=== PATIENT | female | born 1950 | race Caucasian/White ===

== ENCOUNTER 2019-11-05 13:52 | Outpatient (CLI) | payer MEDICARE, OTHER, SELFPAY ==
--- NOTE | 2019-11-05 14:01 | US_ITS ---
WS: [id number] Subcutaneous ultrasound of the left flank, 11/05/2019 Clinical Data: LIPOMA/MASS ON L CHEST WALL Comparison: None. Findings: There was a left flank density. Ultrasound was performed over this area and only normal subcutaneous tissue could be seen. There were no cysts or masses.
--- NOTE | 2019-11-05 14:01 | US_ITS ---
WS: [id number] Subcutaneous ultrasound of the left flank, 11/05/2019 Clinical Data: LIPOMA/MASS ON L CHEST WALL Comparison: None. Findings: There was a left flank density. Ultrasound was performed over this area and only normal subcutaneous tissue could be seen. There were no cysts or masses. US/US chest [id number] Impression: Negative subcutaneous ultrasound of the left flank.
== END 2019-11-05 13:53 | disposition home or self-care (01) ==
PROVIDERS: Family Provider Family Medicine; PCP Family Medicine; Visit Provider Family Medicine
DX: D17.79 Benign lipomatous neoplasm of other sites (principal)
CPT/HCPCS: 76604

== ENCOUNTER 2019-11-10 13:54 | Outpatient (CLI) | payer MEDICARE, OTHER, SELFPAY ==
--- NOTE | 2019-11-10 14:04 | MM_ITS ---
WS: [id number] BILATERAL SCREENING DIGITAL MAMMOGRAM WITH CAD HISTORY: SCREENING COMPARISON: 10/02/2017 and 02/10/2014 Bilateral CC and MLO views submitted. Computer aided detection analyzed. Breast composition: There are scattered areas of fibroglandular density. No suspicious masses, microc alcifications or architectural distortion. MM/[place] [id number] IMPRESSION: BI-RADS: 1-Negative FOLLOW UP: 1 Year Follow-up
== END 2019-11-10 13:55 | disposition home or self-care (01) ==
LOC: RADSHAW 14:00
PROVIDERS: Family Provider Family Medicine; PCP Nurse Practitioner Women's Health; Visit Provider Nurse Practitioner Women's Health
DX: Z12.31 Encounter for screening mammogram for malignant neoplasm of breast (principal)
CPT/HCPCS: 77067

== ENCOUNTER → 2019-11-19 14:00 | Outpatient (BNVA) | payer MEDICARE, OTHER, SELFPAY | PROVIDERS: Family Provider Family Medicine; PCP Nurse Practitioner Women's Health; Visit Provider Nurse Practitioner Women's Health | DX: Z01.419 Encounter for gynecological examination (general) (routine) without abnormal findings (principal); N64.52 Nipple discharge; F17.200 Nicotine dependence, unspecified, uncomplicated; Z86.718 Personal history of other venous thrombosis and embolism | CPT/HCPCS: 84146; 84439; 84443 ==

== ENCOUNTER 2020-05-10 14:00 | Outpatient (CLI) | payer MEDICARE, OTHER, SELFPAY ==
--- NOTE | 2020-05-10 14:07 | XR_ITS ---
WS: [id number] SCREENING DEXA SCAN [place] CLINICAL INFORMATION: POSTMENOPAUSAL ANNUAL EXAM COMPARISON: None. FINDINGS: Lumbar scoliosis convex left with endplate sclerosis. The L1-L4 bone mineral density measures 1.475 g/cm2. This corresponds to a T score score of 2.5 and Z score of 3.4. Left femoral neck bone mineral density measures 0.866. This corresponds to a T score of -1.1 and Z sc ore of -0.2. Left forearm bone mineral density measuring 0.95 with a T score of 0.8 and Z score of 2.6 XR/XR DEXA axial skeleton* [id number] IMPRESSION: Osteopenia left femoral neck. Patient's FRAX calculated 10 year probability for major osteoporotic fracture i s 16.2 % and osteoporotic hip fracture is 4.0%.
== END 2020-05-10 14:01 | disposition home or self-care (01) ==
LOC: RADWPI 14:04
PROVIDERS: Family Provider Family Medicine; PCP Family Medicine; Visit Provider Family Medicine
DX: Z78.0 Asymptomatic menopausal state (principal); M85.88 Other specified disorders of bone density and structure, other site
CPT/HCPCS: 77080

== ENCOUNTER 2021-03-14 13:01 | Outpatient (CLI) | payer MEDICARE, OTHER, SELFPAY ==
--- NOTE | 2021-03-14 13:17 | XRR_ITS ---
PROCEDURE INFORMATION: Exam: XR Chest Exam date and time: 03/14/2021 1:19 PM Age: 70 years old Clinical indication: Dyspnea and shortness of breath and wheezing; Additional info: Smoker/dyspnea TECHNIQUE: Imaging protocol: XR of the chest. Views: 2 views. COMPARISON: CR Chest 1 [place] [id number] 10/20/2018 12:12 AM FINDINGS: Lungs: Unremarkable. No consolidation. Pleural spaces: Unremarkable. No pleural effusion. No pneumothorax. Heart/Mediastinum: Unremarkable. No cardiomegaly. There is a hiatal hernia present stable since prior Bones/joints: Unremarkable. XR/XR chest 2V* [id number] IMPRESSION: 1. Stable hiatal hernia 2. Otherwise negative chest examination
== END 2021-03-14 13:02 | disposition home or self-care (01) ==
PROVIDERS: Family Provider Family Medicine; PCP Family Medicine; Visit Provider Family Medicine
DX: F17.200 Nicotine dependence, unspecified, uncomplicated (principal); R06.00 Dyspnea, unspecified; K44.9 Diaphragmatic hernia without obstruction or gangrene
CPT/HCPCS: 71046

== ENCOUNTER 2022-03-15 12:43 | Emergency (ER) | payer MEDICARE, OTHER, SELFPAY ==
[2022-03-15 12:53] VITALS: BP 154/74; PULSE 97; RESP 15; TEMP 37.1; O2SAT 97; BMI 37.2
--- NOTE | 2022-03-15 13:07 | XR_ITS ---
WS: [id number] XR chest 1V portable [id number] REASON FOR EXAM: chest pain FINDINGS: Moderate tortuosity of the thoracic aorta associated with thoracic scoliosis convex right. Large hiatal hernia. Cardiac silhouette appears more prominent than on the previous day however this is likely due to diff erence in systole/diastole. No acute pulmonary parenchymal or pleural abnormality is identified. XR/XR chest 1V portable [id number] IMPRESSION: No acute abnormality identified.
--- NOTE | 2022-03-15 13:07 | ECG_ITS ---
[facility] Test Date: 2022-03-15 Pat Name: Karolyn Mathews Department: Room: Gender: Female [employer] Location Manager: : 1950 Requested By: Mona Nolan Order Number: [id number] Amol MD: Irving Carballo M.D. Measurements Intervals [place] Rate: 72 P: 13 CT: 147 QRS: -7 QRSD: 90 T: 57 QT: 379 QTc: 417 Interpretive Statements SINUS RHYTHM Compared to ECG 03/15/2022 13:03:12 ST (T wave) deviation no longer present Electronically Signed On 03-15-2022 23:58:34 CDT by Irving Carballo M.D. [email or web address] medicineMGB Bioph[employer]/store/OM/[id number]/[id number]
[2022-03-15 14:58] LABS: Basophils # 0.1 10^3/uL (0.0-0.1); Basophils % 1.1 %; Eosinophils # 0.1 10^3/uL (0.0-0.8); Lymphocytes # 1.3 10^3/uL (0.8-4.8); Lymphocytes % 21.2 %; Mean Corpuscular HGB Conc 32.4 g/dL (30.0-36.0); Mean Corpuscular Hemoglobin 29.1 pg (28.0-34.0); Mean Corpuscular Volume 89.9 fl (81-99); Mean Platelet Volume 8.3 fL (7.4-10.4); Monocytes # 0.8 10^3/uL (0.2-0.9); Monocytes % 12.6 %; Neutrophils # 4.01 10^3/uL (1.8-7.7); Neutrophils % 63.8 %; Nucleated Red Blood Cells % 0 %; Platelet Count 416 10^3/cmm (130-400); Red Blood Count 3.78 10^6/uL (4.1-5.3); Red Cell Distribution Width 14.2 % (12.1-15.1); White Blood Count 6.3 10^3/uL (4.0-10.0)
[2022-03-15 15:30] LABS: Alanine Aminotransferase 13 U/L (0-33); Albumin Level 4.3 g/dL (3.5-5.2); Alkaline Phosphatase 88 IU/L (35-105); Anion Gap 15.1 (5-19); Aspartate Amino Transferase 18 U/L (0-32); Blood Urea Nitrogen 7 mg/dL (8-23); Calcium 9.8 mg/dL (8.5-10.5); Carbon Dioxide 26 mmol/L (22-29); Chloride 102 mmol/L (98-107); Creatinine Clr Calc Pharmacy 70.8093; Globulin 2.9 g/dL (1.3-4.6); Glucose 85 mg/dL (65-115); Osmolality Calculated 285 mOsm/kg (285-295); Potassium 4.1 mmol/L (3.5-5.1); Sodium 139 mmol/L (136-145); Total Bilirubin 0.2 mg/dL (0.15-1.2); Total Protein 7.2 g/dL (6.6-8.7)
[2022-03-15 15:32] LABS: Troponin(5th) Baseline 10 ng/L (0-10)
[2022-03-15 17:28] VITALS: BP 170/76; PULSE 74; RESP 16; O2SAT 96
[2022-03-15 17:30] VITALS: BP 175/90; PULSE 77; RESP 19; O2SAT 96
[2022-03-15 18:31] VITALS: BP 197/94; PULSE 74; RESP 16; O2SAT 97
--- NOTE | 2022-03-15 18:40 | ED_ITS ---
HPI - Chest Pain General: Chief Complaint: Chest Pain Stated Complaint: Chest Pains since yesterday Time Seen by Provider: 03/15/22 18:10 Source: patient Mode of arrival: ambulatory Limitations: no limitations History of Present Illness: This patient comes to the emergency department because she had an episode of chest pain yesterday when mowing the grass. She states the pain was present in her central chest and seemed to radiate to her left jaw. She states that when she completed mowing and when in the house the pain abated. She was using a push more and she did admit that she had a muscle it around when she had to change directions for the more. She had another episode earlier today when she was walking around and moving. She states that she has not had any chest pain since she has been in the emergency department awaiting evaluation. She has no known history of cardiovascular disease but it does have a history of thromboembolic disease. 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 She denies any injury lifting twisting turning bending etc. She has been taking her ProAir hit her anticoagulant as well as her other medications faithfully. She is a smoker. She is unaware of any family history of thromboembolic disease. No recent immobility etc. No exogenous hormones. She relates that she had a negative chemical stress test 1 year ago. MD complaint: chest pain Onset: during exertion Pain location: substernal Exacerbating factors: movement Associated symptoms: Reports no associated symptoms; Deny abdominal pain, dyspnea, fever(s), nausea, palpitations, syncope or vomiting Risk Factors: Coronary artery disease risk factors: smoking history Pulmonary embolism risk factors: history of deep vein thrombosis and history of pulmonary embolism Related Data: On Oral Contraceptives: No Review of Systems Const: Denies: fever(s), chills or body aches Eyes: Denies: change in vision or blurry vision ENMT: Denies: throat pain or odynophagia Card: Denies: palpitations, edema, swelling of feet/ankles, lightheadedness, syncope or pre-syncope Resp: Denies: dyspnea, productive cough, non-productive cough or wheezing GI: Denies: abdominal pain, nausea or vomiting : Denies: flank pain, difficulty voiding, dysuria or urinary frequency Musc: Denies: neck pain, back pain, extremity pain or extremity swelling Skin/Breast: Denies: rash or erythema Neuro: Denies: headache(s), numbness in extremities or weakness in extremities Psych: Denies: anxiety, depression or mood swings Endo: Denies: polyuria, polydipsia or tired all the time [place]/Lymph: Reports: easy bruising; Denies: easy bleeding or petechiae PFS ED PFSH: Medical History (Updated 03/15/22 @ 19:37 by Eligio Noel DO) GERD (gastroesophageal reflux disease) Osteoarthritis Other asthma Personal history of other venous thrombosis and embolism States that she has had to DVTs in the past. One after her second hip surgery and 1 after laparoscopic sigmoidectomy in February 2017. She stated that she was on the blood thinner elequis for 6 months and is now just on aspirin as a blood thinner. -Reports history of pulmonary embolism in Dec 2017. Plantar fascial fibromatosis of left foot Rheumatoid arthritis, unspecified this was ruled out by Dr. Andrade in 2019 Surgical History H/O bladder repair surgery Anterior vaginal repair with porcine graft placement, ureteral pubic urethral sling and cystoscopy performed on 10/02/[address] Barajas for cystocele and stress urinary incontinence. Operative report scanned into computer. H/O right wrist surgery Right wrist fracture repair History of dilation and curettage Done for heavy vaginal bleeding in her 40s History of hysterectomy Vaginal hysterectomy, Done for prolapse at the age of 45. She was told that she has no cancer or precancer. Ovaries spared. History of lumpectomy of right breast Lump removal X 3 from right breast; benign per patient. History of tonsillectomy Done at the age of 27. History of total hip replacement 2 times. Has had right-sided total hip replacement 2 times. Had a DVT after the first 1. History of tubal ligation Done laparoscopically at the age of 23 S/P foot surgery, left Left foot fracture repair Status post laparoscopic-assisted sigmoidectomy Laparoscopic sigmoid colectomy performed on 02/04/2017, Done by Dr. Turcios at [facility] [place] for symptomatic diverticulosis/diverticulitis Family History Mother Heart disease Cancer Breast and thyroid Diabetes Father Heart disease Cancer Bone cancer Son Heart disease One son from a heart attack at the age of 45 Family/Other Diabetes Maternal Aunt, Maternal Uncle Social History Smoking and tobacco status: current every day smoker cigarettes Packs smoked per day: 2 [ Other cigarette details: Started age of 22. She quit smoking for a period of 13 yr, restarted 2003] Quit status (tobacco): not considering quitting Alcohol intake: never Female Reproductive History: Para: 1 ( (1 son at the age of 45 in 2017 from a myocardial infarction) X 2) Spontaneous abortions: No Physical Exam Narrative: EXAM NARRATIVE: Is alert and cooperative in no acute distress answers questions in a goal- directed fashion. Const: COMMON NORMALS: no acute distress and patient oriented x3 GENERAL APPEARANCE: cooperative, comfortable and well kempt NUTRITIONAL APPEARANCE: overweight HENMT: COMMON NORMALS: normocephalic, atraumatic, Normal nasal mucous membranes and turbinates present and moist oral mucous membranes HEAD & SCALP: normocephalic and atraumatic NOSE: Normal nasal mucous membranes and turbinates present Eye: COMMON NORMALS: Equal, round and reactive pupils present, EOMs intact bilaterally and conjunctivae normal CONJUNCTIVA: Yes conjunctivae normal PUPIL: Yes Equal, round and reactive pupils present Neck/C-Spine: COMMON NORMALS: full ROM, no lymphadenopathy, supple, no JVD and No carotid bruits Chest: COMMONS NORMALS: normal inspection of the chest OTHER: Anterior chest wall tenderness Resp: COMMON NORMALS: normal respiratory effort, No use of accessory muscles and clear to auscultation bilaterally AUSCULTATION: clear to auscultation bilaterally Cardio: COMMON NORMALS: no JVD, regular rhythm, No murmurs present (Cardio) and Peripheral pulses 2+ throughout RHYTHM: regular rhythm PERIPHERAL PULSES: Peripheral pulses 2+ throughout GI: COMMON NORMALS: Normal to inspection, nondistended, normoactive bowel sounds present, Soft to palpation and non-tender PALPATION: Yes Soft to palpation : COMMON NORMALS: Yes no CVA tenderness BLADDER/KIDNEY EXAM: Yes no CVA tenderness Back/Pelvis: COMMON NORMALS: no CVA tenderness, thoracic and lumbar spine normal to inspection and no thoracic nor lumbar tenderness Extremity: COMMON NORMALS: normal to inspection, full ROM, capillary refill normal, no joint enlargement, no clubbing, cyanosis or edema, no calf tenderness and no pedal edema Neuro: COMMON NORMALS: patient oriented x3, moves all extremities, no focal motor deficits and no sensory deficits noted Psych: COMMON NORMALS: mental status grossly normal and Normal thought process present APPEARANCE: Yes well kempt THOUGHT PROCESS: Normal thought process present Skin: COMMON NORMALS: no rashes or lesions noted, turgor normal, no jaundice and no petechiae GENERAL SKIN EXAM: no rashes or lesions noted and turgor normal Course ED course: Very busy emergency department therefore the patient had a longer than usual weight. She was pain-free at the time of my evaluation. Reevaluation(s): Reevaluation #1: Portable ultrasound was used to visualize of the lower extremity venous system bilaterally. Using two-point ultrasound visualization both at the popliteal fossa as well as the anterior upper thigh both popliteal and femoral deep venous structures were visualized. They all compressed easily both at the trifurcation bilaterally as well as at the superficial deep femoral junction bilaterally. Time: 19:09 Reevaluation #2: Patient remains clinically stable. Her work-up this evening is been reassuring. Her D-dimer is below the cutoff with negative bedside ultrasounds mitigating likelihood of DVT. She also has negative serial troponins and negative EKGs which are also reassuring. She is comfortable with the work-up at this time and her desires to be discharged from the hospital. Time: 19:35 Vital Signs: Vital signs: Vital Signs Temperature 98.7 F 03/15/22 12:53 Pulse Rate 74 03/15/22 18:31 Respiratory Rate 16 03/15/22 18:31 Blood Pressure 197/94 03/15/22 18:31 Pulse Oximetry 97 03/15/22 18:31 MDM - Chest Pain Medical Decision Making Patient with history of chest pain during lawnmowing. Her work-up today after prolonged emergency department stay is reassuring. Her serial troponins, serial EKGs, D-dimer and bedside ultrasound of her lower legs are all reassuring. Certainly there may be a musculoskeletal etiology to her chest pain but I did advise her that while she is at very low risk is not 0 risk and that continued or recurrent chest pain with exertion or any other concerns should cause her to return to this or the nearest emergency department. I did recommend that she may follow-up with her primary care doctor for consideration of possible coronary CT or other risk stratification procedures as well. She acknowledged our discussion. Medical Records I reviewed the patient's medical records. Lab Data I reviewed the patient's lab results. : 03/15/22 14:44 03/15/22 14:44 Radiology Impressions Chest X-Ray 03/15/22 13:07 IMPRESSION: No acute abnormality identified. Laboratory Results WBC 6.3 10^3/uL (4.0-10.0) 03/15/22 14:44 RBC 3.78 10^6/uL (4.1-5.3) L 03/15/22 14:44 Hgb 11.0 g/dL (11.5-15.3) L 03/15/22 14:44 Hct 34.0 % (37.0-47.0) L 03/15/22 14:44 MCV 89.9 fl (81-99) 03/15/22 14:44 MCH 29.1 pg (28.0-34.0) 03/15/22 14:44 MCHC 32.4 g/dL (30.0-36.0) 03/15/22 14:44 RDW 14.2 % (12.1-15.1) 03/15/22 14:44 Plt Count 416 10^3/cmm (130-400) H 03/15/22 14:44 MPV 8.3 fL (7.4-10.4) 03/15/22 14:44 Neut % (Auto) 63.8 % 03/15/22 14:44 Lymph % (Auto) 21.2 % 03/15/22 14:44 Greene % (Auto) 12.6 % 03/15/22 14:44 Eos % (Auto) 1.0 % 03/15/22 14:44 Baso % (Auto) 1.1 % 03/15/22 14:44 Neut # (Auto) 4.01 10^3/uL (1.8-7.7) 03/15/22 14:44 Lymph # (Auto) 1.3 10^3/uL (0.8-4.8) 03/15/22 14:44 Greene # (Auto) 0.8 10^3/uL (0.2-0.9) 03/15/22 14:44 Eos # (Auto) 0.1 10^3/uL (0.0-0.8) 03/15/22 14:44 Baso # (Auto) 0.1 10^3/uL (0.0-0.1) 03/15/22 14:44 Nucleated RBC % (auto) 0 % 03/15/22 14:44 Nucleated RBCs # 0.0 /100WBC 03/15/22 14:44 D-Dimer 0.57 ug/mIFEU (0-0.59) 03/15/22 14:44 Sodium 139 mmol/L (136-145) 03/15/22 14:44 Potassium 4.1 mmol/L (3.5-5.1) 03/15/22 14:44 Chloride 102 mmol/L (98-107) 03/15/22 14:44 Carbon Dioxide 26 mmol/L (22-29) 03/15/22 14:44 Anion Gap 15.1 (5-19) 03/15/22 14:44 BUN 7 mg/dL (8-23) L 03/15/22 14:44 Creatinine 0.7 mg/dL (0.5-0.9) 03/15/22 14:44 GFR Calculation Not Reportable 03/15/22 14:44 Glucose 85 mg/dL (65-115) 03/15/22 14:44 Calculated Osmolality 285 mOsm/kg (285-295) 03/15/22 14:44 Calcium 9.8 mg/dL (8.5-10.5) 03/15/22 14:44 Total Bilirubin 0.2 mg/dL (0.15-1.2) 03/15/22 14:44 AST 18 U/L (0-32) 03/15/22 14:44 ALT 13 U/L (0-33) 03/15/22 14:44 Alkaline Phosphatase 88 IU/L (35-105) 03/15/22 14:44 Troponin T Baseline 10 ng/L (0-10) 03/15/22 14:44 Troponin T 120 Minute 8.33 ng/L (0-10) 03/15/22 17:30 Delta Troponin T -1.67 ABS# (0-10) L 03/15/22 17:30 Total Protein 7.2 g/dL (6.6-8.7) 03/15/22 14:44 Albumin 4.3 g/dL (3.5-5.2) 03/15/22 14:44 Globulin 2.9 g/dL (1.3-4.6) 03/15/22 14:44 Discharge Plan Discharge Patient Disposition: Home Clinical Impression: Chest pain Condition: Stable Prescriptions: No Action omeprazole 20 mg capsule,delayed release(DR/EC) 20 mg PO BID 0RF tramadol 50 mg tablet 50 mg PO QID PRN (Reason: Pain) 0RF multivitamin Tablet 1 tab PO QAM 0RF Pradaxa 150 mg capsule 150 mg PO BID 0RF ProAir HFA 90 mcg/actuation HFA aerosol inhaler 1 puff INHALATION Q6H PRN (Reason: Shortness Of Breath) 0RF Discharge Orders: Discharge ED (Routine); Ordered 03/15/22 Ordered By: Eligio Noel Referrals: Wali Holguin MD [Primary Care Provider] - 1 month Discharge Diet: Usual diet Discharge Activity: Increase activity as tolerated Patient Instructions: Opioid Safety Activity Restrictions/Additional Instructions: Continue all your usual medications. If you develop persistent chest pain lasting more than 1 hour, worsening shortness of breath at any time or other concerns return to this or the nearest emergency department. Follow-up with your doctor within the next month for reevaluation for additional testing as indicated. Coding Level of Care Code ED Medical Research Associate for Chg Fwd Exam Comprehensive
[2022-03-15 18:44] LABS: Troponin 5 2HR 8.33 ng/L (0-10)
--- NOTE | 2022-03-15 19:07 | ECG_ITS ---
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 Measurements Intervals [place] Rate: 89 P: 43 GA: 150 QRS: -8 QRSD: 98 T: 65 QT: 361 QTc: 440 Interpretive Statements SINUS RHYTHM MINIMAL ST DEPRESSION [0.025+ mV ST DEPRESSION] Compared to ECG 10/19/2018 23:47:33 ST (T wave) deviation now present Myocardial infarct finding no longer present Electronically Signed On 03-16-2022 0:20:14 CDT by Irving Carballo M.D. [id number]
[2022-03-15 19:08] LABS: Troponin 5 2HR Delta -1.67 ABS# (0-10)
[2022-03-15 19:16] LABS: D Dimer 0.57 ug/mIFEU (0-0.59)
[2022-03-15 19:51] VITALS: BP 198/95; PULSE 84; O2SAT 96
== END 2022-03-15 19:53 | disposition home or self-care (01) ==
PROVIDERS: Physician Assistant; Emergency Provider Emergency Medicine; PCP Family Medicine
DX: R07.9 Chest pain, unspecified (principal); F17.210 Nicotine dependence, cigarettes, uncomplicated; Z86.711 Personal history of pulmonary embolism; Z79.01 Long term (current) use of anticoagulants; Z86.718 Personal history of other venous thrombosis and embolism; Z82.49 Family history of ischemic heart disease and other diseases of the circulatory system
CPT/HCPCS: 36415; 71045; 80053; 84484; 85025; 85378; 93005; 99283

== ENCOUNTER 2022-12-11 14:10 | Outpatient (CLI) | payer MEDICARE, OTHER, SELFPAY ==
[2022-12-11 15:06] LABS: Basophils # 0.1 10^3/uL (0.0-0.1); Basophils % 1.6 %; Eosinophils # 0.1 10^3/uL (0.0-0.8); Eosinophils % 2.4 %; Hematocrit 27.3 % (37.0-47.0); Hemoglobin 7.9 g/dL (11.5-15.3); Lymphocytes # 1.7 10^3/uL (0.8-4.8); Lymphocytes % 34.9 %; Mean Corpuscular HGB Conc 28.9 g/dL (30.0-36.0); Mean Corpuscular Volume 79.6 fl (81-99); Mean Platelet Volume 8.5 fL (7.4-10.4); Monocytes # 0.5 10^3/uL (0.2-0.9); Monocytes % 10.5 %; Neutrophils # 2.49 10^3/uL (1.8-7.7); Neutrophils % 50.4 %; Nucleated Red Blood Cells % 0 %; Platelet Count 428 10^3/cmm (130-400); Red Blood Count 3.43 10^6/uL (4.1-5.3)
[2022-12-11 15:33] LABS: Alanine Aminotransferase 17 U/L (0-33); Albumin Level 4.1 g/dL (3.5-5.2); Alkaline Phosphatase 101 U/L (35-105); Anion Gap 13.3 (5-19); Aspartate Amino Transferase 20 U/L (0-32); Blood Urea Nitrogen 10 mg/dL (8-23); Calcium 9.1 mg/dL (8.5-10.5); Carbon Dioxide 29 mmol/L (22-29); Chloride 99 mmol/L (98-107); Globulin 2.8 g/dL (1.3-4.6); Glucose 88 mg/dL (65-115); Osmolality Calculated 282 mOsm/kg (285-295); Potassium 4.3 mmol/L (3.5-5.1); Sodium 137 mmol/L (136-145); Total Bilirubin 0.2 mg/dL (0.15-1.2); Total Protein 6.9 g/dL (6.6-8.7)
[2022-12-11 15:49] LABS: Hepatitis A Antibody IgM Non-Reactive (Nonreactive); Hepatitis B Core AB, Total Non-Reactive (Nonreactive); Hepatitis B Surface AB 3.5 (11.5-1000); Hepatitis B Surface Antigen Non-Reactive (Nonreactive); Hepatitis C Virus Antibody Non-Reactive (Nonreactive)
[2022-12-12 09:55] LABS: CENTROMERE B ANTIBODY <1.0 NEG AI (<1.0 NEG); JO-1 ANTIBODY <1.0 NEG AI (<1.0 NEG); RNP ANTIBODY <1.0 NEG AI (<1.0 NEG); SCL-70 ANTIBODY <1.0 NEG AI (<1.0 NEG); SJOGREN'S ANTIBODY (SS-A) <1.0 NEG AI (<1.0 NEG); SM ANTIBODY <1.0 NEG AI (<1.0 NEG); SS-B <1.0 NEG AI (<1.0 NEG)
[2022-12-12 18:39] LABS: THYROID PEROXIDASE ANTIBODIES <1 IU/mL (<9)
[2022-12-13 13:39] LABS: COMPLEMENT COMPONENT C3C 170 mg/dL (83-193); COMPLEMENT COMPONENT C4C 26 mg/dL (15-57)
[2022-12-14 14:20] LABS: COMPLEMENT, TOTAL (CH50) >60 U/mL (31-60)
[2022-12-14 15:20] LABS: DNA AB (DS) CRITHIDIA,IFA NEGATIVE (NEGATIVE)
[2022-12-16 10:19] LABS: ANA SCREEN, IFA POSITIVE (NEGATIVE); ANA TITER 1:40 titer; Anti-Nuclear AB Pattern #2 Nuclear, Homogeneous; Anti-Nuclear Antibody Titer #2 1:40 titer
== END 2022-12-11 14:11 | disposition home or self-care (01) ==
LOC: LAB 14:18
PROVIDERS: PCP Family Medicine; Visit Provider Dermatology
DX: L30.8 Other specified dermatitis (principal); M25.50 Pain in unspecified joint
CPT/HCPCS: 36415; 80053; 85025; 86160; 86162; 86235; 86255; 86376; 86705; 86706; 86709; 86803; 87340

== ENCOUNTER 2022-12-24 15:28 | Outpatient (CLI) | payer MEDICARE, OTHER, SELFPAY ==
[2022-12-24 16:56] LABS: Basophils # 0.1 10^3/uL (0.0-0.1); Basophils % 1.1 %; Eosinophils # 0.1 10^3/uL (0.0-0.8); Eosinophils % 1.2 %; Hematocrit 28.1 % (37.0-47.0); Hemoglobin 8.2 g/dL (11.5-15.3); Lymphocytes # 1.9 10^3/uL (0.8-4.8); Mean Corpuscular HGB Conc 29.2 g/dL (30.0-36.0); Mean Corpuscular Hemoglobin 23.1 pg (28.0-34.0); Mean Corpuscular Volume 79.2 fl (81-99); Mean Platelet Volume 8.5 fL (7.4-10.4); Monocytes # 0.7 10^3/uL (0.2-0.9); Monocytes % 11.1 %; Neutrophils # 3.64 10^3/uL (1.8-7.7); Neutrophils % 56.3 %; Nucleated Red Blood Cells % 0 %; Platelet Count 422 10^3/cmm (130-400); Red Blood Count 3.55 10^6/uL (4.1-5.3); Red Cell Distribution Width 17.7 % (12.1-15.1); White Blood Count 6.5 10^3/uL (4.0-10.0)
== END 2022-12-24 15:29 | disposition home or self-care (01) ==
LOC: LAB 15:35
PROVIDERS: PCP Family Medicine; Visit Provider Dermatology
DX: D64.9 Anemia, unspecified (principal)
CPT/HCPCS: 85025

== ENCOUNTER → 2023-01-07 08:55 | Outpatient (BNVA) | payer MEDICARE, OTHER, SELFPAY | PROVIDERS: PCP Family Medicine; Visit Provider Family Medicine | DX: D64.9 Anemia, unspecified (principal); Z01.419 Encounter for gynecological examination (general) (routine) without abnormal findings | CPT/HCPCS: 85025 ==

== ENCOUNTER → 2023-01-17 08:25 | Outpatient (BNVA) | payer MEDICARE, OTHER, SELFPAY | PROVIDERS: PCP Family Medicine; Visit Provider Family Medicine | DX: D64.9 Anemia, unspecified (principal) | CPT/HCPCS: 85025 ==

== ENCOUNTER 2023-02-14 09:05 | Outpatient (CLI) | payer MEDICARE, OTHER, SELFPAY ==
--- NOTE | 2023-02-14 09:36 | CT_ITS ---
WS: [id number] LDCT LUNG CANCER SCREENING HISTORY: screening TECHNIQUE: Axial imaging performed from the apices to 1 cm below the costophrenic angles. Coronal and sagittal reformats are submitted with axial MIP series. All CT scans at [facility] use at least one of these dose optimization techniques: automated exposure control; mA and/or kV adjustment per patient size (includes targeted exams where dose is matched to clinical indication); or iterativ e reconstruction. DLP: 94.11 mGy.cm DIvol: Mean CTDIvol: 2.10 (mGy) COMPARISON: 07/25/2018 Diagnostic quality: Satisfactory Lungs: No pulmonary nodule, mass or pneumonia. No endobronchial lesions. Heart: Normal size heart with no pericardial effusion.. Other findings: Mild atherosclerosis aorta. No adenopathy. Large hiatal hernia. Stable hepatic cyst m easuring 1 cm. No adrenal mass. Moderate RIGHT curvature thoracic spine. CT/CT lung screening [id number] IMPRESSION: LUNG-RADS: 1-Negative FOLLOW UP: 12 Month: Continue annual screening with LDCT OTHER FINDINGS (S MODIFIER): None.
== END 2023-02-14 09:06 | disposition home or self-care (01) ==
LOC: RAD 09:10
PROVIDERS: PCP Family Medicine; Visit Provider Family Medicine
DX: Z12.2 Encounter for screening for malignant neoplasm of respiratory organs (principal); F17.200 Nicotine dependence, unspecified, uncomplicated
CPT/HCPCS: 71271

== ENCOUNTER → 2023-02-15 08:32 | Outpatient (BNVA) | payer MEDICARE, OTHER, SELFPAY | PROVIDERS: PCP Family Medicine; Visit Provider Family Medicine | DX: D64.9 Anemia, unspecified (principal) | CPT/HCPCS: 85025 ==

== ENCOUNTER → 2023-03-25 11:04 | Outpatient (BNVA) | payer MEDICARE, OTHER, SELFPAY | PROVIDERS: PCP Family Medicine; Visit Provider Family Medicine | DX: D64.9 Anemia, unspecified (principal) | CPT/HCPCS: 85025 ==

== ENCOUNTER → 2023-03-27 12:31 | Outpatient (BNVA) | payer MEDICARE, OTHER, SELFPAY | PROVIDERS: PCP Family Medicine; Visit Provider Internal Medicine Rheumatology | DX: Z79.899 Other long term (current) drug therapy (principal); M19.90 Unspecified osteoarthritis, unspecified site | CPT/HCPCS: 36415; 73130; 73630; 80076; 82306; 82565; 85651; 86140; 86200; 86431; 99204 ==

== ENCOUNTER → 2023-05-15 11:47 | Outpatient (BNVA) | payer MEDICARE, OTHER, SELFPAY | PROVIDERS: PCP Family Medicine; Visit Provider Family Medicine | DX: D64.9 Anemia, unspecified (principal) | CPT/HCPCS: 85025 ==

== ENCOUNTER → 2023-05-29 14:34 | Outpatient (BNVA) | payer MEDICARE, OTHER, SELFPAY | PROVIDERS: PCP Family Medicine; Visit Provider Internal Medicine Rheumatology | DX: M25.50 Pain in unspecified joint (principal); M19.90 Unspecified osteoarthritis, unspecified site; Z86.718 Personal history of other venous thrombosis and embolism; R21 Rash and other nonspecific skin eruption | CPT/HCPCS: 99214 ==

== ENCOUNTER → 2023-07-17 11:32 | Outpatient (BNVA) | payer MEDICARE, OTHER, SELFPAY | PROVIDERS: PCP Family Medicine; Visit Provider Family Medicine | DX: D64.9 Anemia, unspecified (principal); M25.50 Pain in unspecified joint; Z86.718 Personal history of other venous thrombosis and embolism | CPT/HCPCS: 80053; 85025 ==

== ENCOUNTER → 2023-07-22 08:12 | Outpatient (BNVA) | payer MEDICARE, OTHER, SELFPAY | PROVIDERS: PCP Family Medicine; Referring Provider Family Medicine; Visit Provider Surgery | DX: D50.9 Iron deficiency anemia, unspecified (principal) | CPT/HCPCS: 99203 ==

== ENCOUNTER → 2023-08-05 16:11 | Outpatient (BNVA) | payer MEDICARE, OTHER, SELFPAY | PROVIDERS: PCP Family Medicine; Visit Provider Nurse Practitioner Family | DX: R39.9 Unspecified symptoms and signs involving the genitourinary system (principal) | CPT/HCPCS: 81000; 87077; 87086; 87184 ==

== ENCOUNTER → 2023-08-28 13:38 | Outpatient (BNVA) | payer MEDICARE, OTHER, SELFPAY | PROVIDERS: PCP Family Medicine; Visit Provider Internal Medicine Rheumatology | DX: M25.50 Pain in unspecified joint (principal); M19.90 Unspecified osteoarthritis, unspecified site; Z86.718 Personal history of other venous thrombosis and embolism; R21 Rash and other nonspecific skin eruption | CPT/HCPCS: 99214 ==

== ENCOUNTER → 2023-12-05 10:01 | Outpatient (BNVA) | payer MEDICARE, OTHER, SELFPAY | PROVIDERS: PCP Family Medicine; Visit Provider Family Medicine | DX: D64.9 Anemia, unspecified (principal) | CPT/HCPCS: 80053; 85025 ==

== ENCOUNTER 2023-12-19 10:59 | Day surgery (SDC) | payer MEDICARE, OTHER, SELFPAY ==
[2023-12-19 11:11] VITALS: BMI 38.9
[2023-12-19] MEDS: sodium chloride 0.9% 1,000 ML 30 ML IV (11:16)
[2023-12-19 11:20] VITALS: BP 173/111; PULSE 90; RESP 18; TEMP 37.4; O2SAT 94
--- NOTE | 2023-12-19 11:23 | P.ANESASSM_ITS ---
Pre-Anesthetic Assessment Height/Weight: Height 1.6 m Weight 99.79 kg Temp Pulse Resp BP Pulse Ox O2 Del Method 99.4 F 90 18 173/111 94 Room Air 12/19/23 11:20 12/19/23 11:20 12/19/23 11:20 12/19/23 11:20 12/19/23 11:20 12/19/23 11:20 Preop Diagnosis: Anemia Operation Date: 12/19/23 12:20 Proposed Procedures p EGD(Not Applicable) - David Morataya MD s : [id number] egd 71815 colon d50.9(Not Applicable) - David Morataya MD Familial anesthetic complications: Violence with versed, no other complications Was Beta Abelardo taken within 24 hours: N/A Was Clonidine taken within 24 hours: N/A Last intake: Solids: 12/17, liquids: midnight Social No alcohol and No tobacco (Chews nicotine gum, quit smoking 1 year ago) 1.5 pack(s) per day 40 pack years Exam alert, oriented x 3, clear to auscultation bilaterally and regular rate & rhythm Airway Submandibular: within normal limits Cervical ROM: within normal limits Mallampati: Class II Comments: Comments: Lost a filling on upper right, missing teeth History/ROS No significant history except as noted and No significant complaints Pulmonary Asthma (Haven't used inhaler in the last month), Cough and Exertional Dyspnea Sinus infection a few weeks ago. 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 Spoke with a head of quality who referred her to Dr. Morgan. She stated there was no follow-ups needed Hepatic None reported GI Gastroesophageal Reflux Disease (Controlled with meds, none this morning) and Hiatal Hernia Metabolic Morbid Obesity Musc/skel Fibromyalgia, Osteoarthritis/DJD and Scoliosis Neuropsych Headache (Cluster headaches) and Neuropathy Anesthetic Plan ASA status: 3 Anesthesia: Anesthesia Evaluation, General and MAC Risk of > 500 ml blood loss (7ml/kg in children): No Medications/Allergies Home Medications Medication Instructions Recorded Confirmed Last Taken Type multivitamin 1 tab PO QAM 11/16/19 12/17/23 12/13/23 History albuterol sulfate 90 mcg/actuation 1 puff inhalation Q6H PRN 11/02/22 12/17/23 Unknown Rx aerosol inhaler (ProAir HFA) Shortness Of Breath #8.5 grams ferrous sulfate 325 mg (65 mg 325 mg PO BID #60 tabs 12/25/22 12/17/23 12/17/23 Rx iron) tablet dabigatran etexilate 75 mg capsule 75 mg PO BID #60 caps 01/19/23 12/17/23 12/13/23 Rx (Pradaxa) tramadol 50 mg tablet 50 mg PO QID PRN Pain #120 tabs 08/29/23 12/17/23 12/17/23 Rx prednisone 20 mg tablet See Rx Instructions PO .COMPLEX 10/17/23 12/17/23 12/12/23 Rx PRN joint pain flare #30 tabs omeprazole 20 mg capsule,delayed 20 mg PO BID 10/30/23 12/17/23 12/17/23 History release Allergies Allergy/AdvReac Type Severity Reaction Status Date / Time codeine Allergy Psychotic Verified 12/19/23 11:26 symptoms lorazepam [From Ativan] Allergy Psychotic Verified 12/19/23 11:26 symptoms midazolam [From Versed] Allergy Extreme Verified 12/19/23 11:26 violence promethazine [From Phenergan] Allergy Twitching Verified 12/19/23 11:26 and shaking Current Medications Generic Name Dose Route Start Last Admin Trade Name Freq PRN Reason Stop Dose Admin Sodium Chloride 1,000 mls @ 30 mls/hr 12/19/23 11:15 12/19/23 11:16 Sodium Chloride 0.9% IV 12/20/23 11:14 30 mls/hr .Q24H ESTRELLA Administration PFSH Anesthesia Medical History Skin rash Polyarthralgia URI with cough and congestion Anemia Osteoarthritis Other asthma Personal history of other venous thrombosis and embolism Rheumatoid arthritis, unspecified this was ruled out by Dr. Andrade in 2019 GERD (gastroesophageal reflux disease) Plantar fascial fibromatosis of left foot Surgical History History of tubal ligation Done laparoscopically at the age of 23 H/O right wrist surgery Right wrist fracture repair S/P foot surgery, left Left foot fracture repair History of lumpectomy of right breast Lump removal X 3 from right breast; benign per patient. Status post laparoscopic-assisted sigmoidectomy Laparoscopic sigmoid colectomy performed on 02/04/2017, Done by Dr. Turcios at [facility] [place] for symptomatic diverticulosis/diverticulitis H/O bladder repair surgery Anterior vaginal repair with porcine graft placement, ureteral pubic urethral sling and cystoscopy performed on 10/02/[address] Barajas for cystocele and stress urinary incontinence. Operative report scanned into computer. History of total hip replacement 2 times. Has had right-sided total hip replacement 2 times. Had a DVT after the first 1. History of hysterectomy Vaginal hysterectomy, Done for prolapse at the age of 45. She was told that she has no cancer or precancer. Ovaries spared. History of dilation and curettage Done for heavy vaginal bleeding in her 40s History of tonsillectomy Done at the age of 27. Family History Mother Heart disease Cancer Breast and thyroid Diabetes Hypertension Father Heart disease Cancer Bone cancer Lung disease Hypertension Son Heart disease One son from a heart attack at the age of 45 Cancer Family/Other Diabetes Maternal Aunt, Maternal Uncle Brother Cancer Grandfather Cancer Grandmother Cancer Denies family history of Rheumatoid arthritis Psoriatic arthritis Heart attack Psoriasis Social History Smoking and tobacco/nicotine status: former use of tobacco/nicotine Quit status (tobacco/nicotine): has quit using Year quit tobacco: 12/26/22 Alcohol intake: never Substance/Drug Use: never Female Reproductive History Para: 1 ( (1 son at the age of 45 in 2017 from a myocardial infarction) X 2) Spontaneous abortions: No Data Anesthesia Cardiac Studies: No Data to Display
--- NOTE | 2023-12-19 11:33 | P.HP_ITS ---
Same Day Surgery H&P Indication for Procedure/HPI DATE OF PROCEDURE: December 19, 2023 CHIEF COMPLAINT/INDICATIONFOR SURGICAL PROCEDURE: iron deficiency anemia PREOP DIAGNOSIS: iron deficiency anemia PLANNED PROCEDURE: Operation Date: 12/19/23 12:20 Proposed Procedures p EGD(Not Applicable) - David Morataya MD s : [id number] egd [id number] colon d50.9(Not Applicable) - David Morataya MD Medications/Allergies* Home Medications Medication Instructions Recorded Confirmed Type multivitamin 1 tab PO QAM 11/16/19 12/17/23 History omeprazole 20 mg capsule,delayed 20 mg PO BID 10/30/23 12/17/23 History release Allergies/Adverse Reactions 3 Allergy/AdvReac Type Severity Reaction Status Date / Time codeine Allergy Psychotic Verified 12/19/23 11:26 symptoms lorazepam [From Ativan] Allergy Psychotic Verified 12/19/23 11:26 symptoms midazolam [From Versed] Allergy Extreme Verified 12/19/23 11:26 violence promethazine [From Phenergan] Allergy Twitching Verified 12/19/23 11:26 and shaking Current Medications: Generic Name Dose Route Start Last Admin Trade Name Freq PRN Reason Stop Dose Admin Sodium Chloride 1,000 mls @ 30 mls/hr 12/19/23 11:15 12/19/23 11:16 Sodium Chloride 0.9% IV 12/20/23 11:14 30 mls/hr .Q24H ESTRELLA Administration Pertinent History/Comorbid Conditions* Medical History (Updated 07/22/23 @ 10:10 by David Morataya MD) Skin rash Polyarthralgia URI with cough and congestion Anemia Osteoarthritis Other asthma Personal history of other venous thrombosis and embolism Rheumatoid arthritis, unspecified this was ruled out by Dr. Andrade in 2019 GERD (gastroesophageal reflux disease) Plantar fascial fibromatosis of left foot Surgical History (Updated 11/19/19 @ 13:22 by Kisha Jacobs APN, WHKALEB) History of tubal ligation Done laparoscopically at the age of 23 H/O right wrist surgery Right wrist fracture repair S/P foot surgery, left Left foot fracture repair History of lumpectomy of right breast Lump removal X 3 from right breast; benign per patient. Status post laparoscopic-assisted sigmoidectomy Laparoscopic sigmoid colectomy performed on 02/04/2017, Done by Dr. Turcios at [facility] for symptomatic diverticulosis/diverticulitis H/O bladder repair surgery Anterior vaginal repair with porcine graft placement, ureteral pubic urethral sling and cystoscopy performed on 10/02/[address] Barajas for cystocele and stress urinary incontinence. Operative report scanned into computer. History of total hip replacement 2 times. Has had right-sided total hip replacement 2 times. Had a DVT after the first 1. History of hysterectomy Vaginal hysterectomy, Done for prolapse at the age of 45. She was told that she has no cancer or precancer. Ovaries spared. History of dilation and curettage Done for heavy vaginal bleeding in her 40s History of tonsillectomy Done at the age of 27. Family History (Updated 03/27/23 @ 11:34 by Hope Bartlett LPN) Diabetes Mother Family/Other Maternal Aunt, Maternal Uncle Heart disease Mother Father Son One son from a heart attack at the age of 45 Lung disease Father Cancer Mother Breast and thyroid Father Bone cancer Son Brother Grandfather Grandmother Hypertension Mother Father Denies family history of Rheumatoid arthritis Psoriatic arthritis Heart attack Psoriasis Social History Smoking and tobacco/nicotine status: former use of tobacco/nicotine Quit status (tobacco/nicotine): has quit using Year quit tobacco: 12/26/22 Alcohol intake: never Substance/Drug Use: never Pertinent Exam Findings alert, oriented x 3 and clear to auscultation bilaterally Recommendations Surgery/Procedure today Coding Level of Care Code Acute Code for Chg Fwd
[2023-12-19 12:14] VITALS: BP 110/61; PULSE 72; RESP 14; TEMP 36.6; O2SAT 93
[2023-12-19 12:20] VITALS: BP 142/76; PULSE 70; RESP 14; O2SAT 93
[2023-12-19 12:31] VITALS: BP 157/99; PULSE 67; RESP 16; O2SAT 96
--- NOTE | 2023-12-19 13:18 | ANE.PACU2 ---
Inpatient post-anesthesia follow up: Airway intact: Yes Vital signs: Temperature 97.8 F Pulse Rate 67 Respiratory Rate 16 Blood Pressure 157/99 Pulse Oximetry 96 Oxygen Delivery Me thod Room Air Oxygen Flow Rate Fraction of Inspir ed Oxygen Hydration adequate: Yes Nausea and vomiting: No Pain level: 2 Mental status: Baseline
== END 2023-12-19 13:05 | disposition home or self-care (01) ==
PROVIDERS: PCP Family Medicine; Visit Provider Surgery
PROC: 0DJ08ZZ Inspection of Upper Intestinal Tract, Via Natural or Artificial Opening Endoscopic (ICD-10-PCS; CPT 43235; principal; 2023-12-19 12:20)
PROC: 0DJD8ZZ Inspection of Lower Intestinal Tract, Via Natural or Artificial Opening Endoscopic (ICD-10-PCS; CPT 45378; 2023-12-19 12:20)
DX: D50.9 Iron deficiency anemia, unspecified (principal); M06.9 Rheumatoid arthritis, unspecified; K21.9 Gastro-esophageal reflux disease without esophagitis; Z87.891 Personal history of nicotine dependence; K29.70 Gastritis, unspecified, without bleeding; F17.210 Nicotine dependence, cigarettes, uncomplicated; I25.10 Atherosclerotic heart disease of native coronary artery without angina pectoris; I10 Essential (primary) hypertension; Z86.718 Personal history of other venous thrombosis and embolism; E66.01 Morbid (severe) obesity due to excess calories; Z68.39 Body mass index [BMI] 39.0-39.9, adult; M79.7 Fibromyalgia
CPT/HCPCS: 43239; 45380; 88305; J2704; J7030

== ENCOUNTER → 2024-01-01 10:17 | Outpatient (BNVA) | payer MEDICARE, OTHER, SELFPAY | PROVIDERS: PCP Family Medicine; Visit Provider Surgery | DX: Z09 Encounter for follow-up examination after completed treatment for conditions other than malignant neoplasm (principal) | CPT/HCPCS: 99213 ==

== ENCOUNTER 2024-04-19 16:56 | Emergency (ER) | payer MEDICARE, OTHER, SELFPAY ==
[2024-04-19 17:00] VITALS: BP 180/112; PULSE 99; RESP 17; TEMP 37.2; O2SAT 94; BMI 38.0
--- NOTE | 2024-04-19 17:04 | ECG_ITS ---
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 Measurements Intervals [place] Rate: 91 P: 53 [place]: 150 QRS: 6 QRSD: 100 T: 62 QT: 346 QTc: 428 Interpretive Statements SINUS RHYTHM Compared to ECG 03/15/2022 14:28:54 No significant changes Electronically Signed On 04-19-2024 21:40:07 CDT by Jose Antonio Rene M.D. [id number]
--- NOTE | 2024-04-19 17:49 | XRR_ITS ---
PROCEDURE INFORMATION: Exam: XR Chest Exam date and time: 04/19/2024 5:58 PM Age: 73 years old Clinical indication: Other: Palpitations; Prior surgery; Surgery date: 6+ months; Surgery type: Right lumpectomy TECHNIQUE: Imaging protocol: Radiologic exam of the chest. Views: 1 view. COMPARISON: CT lung screening [id number] 02/14/2023 9:44 AM FINDINGS: Airway: Patent Lungs: Left retrocardiac consolidation with air foci, related to known large hiatal hernia. Remainder of the lungs are clear. Pleural spaces: Unremarkable. No pleural effusion. No pneumothorax. Heart/Mediastinum: Cardiomediastinal silhouette is magnified due to technique. Bones/joints: No acute skeletal abnormality or aggressive osseous lesion. XR/XR chest 1V portable [id number] IMPRESSION: No acute findings.
[2024-04-19 17:57] LABS: Basophils # 0.1 10^3/uL (0.0-0.1); Basophils % 1.1 %; Eosinophils # 0.1 10^3/uL (0.0-0.8); Eosinophils % 0.9 %; Hematocrit 42.3 % (36-47); Lymphocytes # 1.4 10^3/uL (0.8-4.8); Lymphocytes % 25.5 %; Mean Corpuscular HGB Conc 33.3 g/dL (30-55); Mean Corpuscular Hemoglobin 32.1 pg (27-33); Mean Corpuscular Volume 96.4 fl (85-98); Mean Platelet Volume 9.2 fL (7.4-10.4); Monocytes # 0.6 10^3/uL (0.2-0.9); Neutrophils # 3.27 10^3/uL (1.8-7.7); Neutrophils % 61.3 %; Nucleated Red Blood Cells % 0 %; Platelet Count 308 10^3/cmm (157-399); Red Blood Count 4.39 10^6/uL (3.85-5.65); Red Cell Distribution Width 13.4 % (12.1-15.1); White Blood Count 5.34 10^3/uL (3.29-11.43)
[2024-04-19 18:04] VITALS: PULSE 83; RESP 18; O2SAT 93
[2024-04-19] MEDS: metoprolol tartrate 1 mg/1 mL SDV 5 mL 5 MG IVP (18:51)
[2024-04-19 18:53] VITALS: BP 180/125; PULSE 79; RESP 16; O2SAT 93
[2024-04-19 18:59] LABS: D Dimer 0.54 ug/mLFEU (0-0.59)
[2024-04-19 19:00] VITALS: BP 192/91; PULSE 70; RESP 16; O2SAT 94
[2024-04-19 19:04] LABS: Add Urine Microscopic? YES; Bacteria Urine TRACE /hpf; Bilirubin Urine Neg (Negative); Blood Urine 2+ (Negative); Glucose Urine UA Norm (Normal); Ketones Urine Negative (Negative); Leukocyte Esterase Urine Negative (Negative); Mucus Urine TRACE /hpf; Nitrate Urine Negative (Negative); Protein Urine Neg (Negative); RBC Urine 0-4 /hpf (0-2); Specific Gravity, Urine 1.005 (1.005-1.030); Urine Appearance Clear (CLEAR); Urine Color Yellow (Yellow); Urobilinogen Urine Neg (Negative); WBC Urine 0-4 /hpf (0-5); pH Urine 5 (5-7)
[2024-04-19 19:06] LABS: Amphetamines Screen Urine Negative (Negative); Barbiturates Screen Urine Negative (Negative); Benzodiazepines Screen Urine Negative (Negative); Cocaine Screen Urine Negative (Negative); Opiate Screen Urine Negative (Negative); PCP Screen Urine Negative (Negative); THC Screen Urine Negative (Negative)
[2024-04-19 19:15] LABS: Alanine Aminotransferase 31 U/L (0-33); Albumin Level 4.1 g/dL (3.5-5.2); Alkaline Phosphatase 94 U/L (35-105); Anion Gap 15.1 (5-19); Aspartate Amino Transferase 24 U/L (0-32); Blood Urea Nitrogen 12 mg/dL (8-23); Calcium 9.4 mg/dL (8.5-10.5); Carbon Dioxide 25 mmol/L (22-29); Chloride 101 mmol/L (98-107); Creatinine Clr Calc Pharmacy 69.6538; Globulin 3.2 g/dL (1.3-4.6); Glucose 114 mg/dL (65-115); Osmolality Calculated 285 mOsm/kg (285-295); Potassium 4.1 mmol/L (3.5-5.1); Sodium 137 mmol/L (136-145); Thyroid Stimulating Hormone 1.19 uIU/mL (0.27-4.20); Total Bilirubin 0.3 mg/dL (0.15-1.2); Total Protein 7.3 g/dL (6.6-8.7)
[2024-04-19 19:27] LABS: Troponin(5th) Baseline 8 ng/L (0-10)
--- NOTE | 2024-04-19 19:29 | ED_ITS ---
HPI - Dizziness 2 General: Chief Complaint: Dizziness Stated Complaint: sweating, dizzy, nauseous Time Seen by Provider: 04/19/24 18:19 History of Present Illness: HPI Narrative: 73-year-old female with a history of DVT and PE. She presents with episodes of significant palpitations, where she feels like her heart is beating through her chest. She gets diaphoretic and nauseated with these situations. She also gets short of breath. She does not have any overt chest pain with them necessarily. She has been noticing them with increased frequency for the past week or so. She had the worst 1 she has had about 30 minutes prior to arrival. Seems resolved on my exam. Associated symptoms: Reports nausea and palpitations; Denies chest pain or vomiting Review of Systems 2 Const: Denies: fever(s) ENMT: Denies: throat pain Card: Reports: palpitations; Denies: chest pain Resp: Reports: dyspnea; Denies: productive cough or non-productive cough GI: Reports: nausea; Denies: abdominal pain or vomiting Musc: Denies: neck pain Skin/Breast: Reports: rash (Chronic excoriated areas to arms, face.) PFSH ED 2 PFSH: Medical History Skin rash Polyarthralgia URI with cough and congestion Anemia Osteoarthritis Other asthma Personal history of other venous thrombosis and embolism Rheumatoid arthritis, unspecified this was ruled out by Dr. Andrade in 2019 GERD (gastroesophageal reflux disease) Plantar fascial fibromatosis of left foot Surgical History History of tubal ligation Done laparoscopically at the age of 23 H/O right wrist surgery Right wrist fracture repair S/P foot surgery, left Left foot fracture repair History of lumpectomy of right breast Lump removal X 3 from right breast; benign per patient. Status post laparoscopic-assisted sigmoidectomy Laparoscopic sigmoid colectomy performed on 02/04/2017, Done by Dr. Turcios at [facility] for symptomatic diverticulosis/diverticulitis H/O bladder repair surgery Anterior vaginal repair with porcine graft placement, ureteral pubic urethral sling and cystoscopy performed on 10/02/[address] Barajas for cystocele and stress urinary incontinence. Operative report scanned into computer. History of total hip replacement 2 times. Has had right-sided total hip replacement 2 times. Had a DVT after the first 1. History of hysterectomy Vaginal hysterectomy, Done for prolapse at the age of 45. She was told that she has no cancer or precancer. Ovaries spared. History of dilation and curettage Done for heavy vaginal bleeding in her 40s History of tonsillectomy Done at the age of 27. Family History Mother Heart disease Cancer Breast and thyroid Diabetes Hypertension Father Heart disease Cancer Bone cancer Lung disease Hypertension Son Heart disease One son from a heart attack at the age of 45 Cancer Family/Other Diabetes Maternal Aunt, Maternal Uncle Brother Cancer Grandfather Cancer Grandmother Cancer Denies family history of Rheumatoid arthritis Psoriatic arthritis Heart attack Psoriasis Social History Smoking and tobacco/nicotine status: former use of tobacco/nicotine Quit status (tobacco/nicotine): has quit using Year quit tobacco: 12/26/22 Alcohol intake: never Substance/Drug Use: never Female Reproductive History: Para: 1 ( (1 son at the age of 45 in 2017 from a myocardial infarction) X 2) Spontaneous abortions: No Physical Exam 2 Const: COMMON NORMALS: no acute distress GENERAL APPEARANCE: cooperative; not ill appearing and not frail appearing HENMT: COMMON NORMALS: normocephalic, atraumatic and Normal external nose present HEAD & SCALP: normocephalic and atraumatic FACE & SINUS: normal facial exam and face symmetric NOSE: Normal external nose present Eye: COMMON NORMALS: Equal, round and reactive pupils present and EOMs intact bilaterally PUPIL: Yes Equal, round and reactive pupils present Neck/C-Spine: GENERAL: Yes trachea midline Chest: CHEST: Yes Symmetrical chest wall rise Resp: COMMON NORMALS: normal respiratory effort, No retractions, No use of accessory muscles and clear to auscultation bilaterally AUSCULTATION: clear to auscultation bilaterally Cardio: COMMON NORMALS: regular rate and regular rhythm RATE: regular rate RHYTHM: regular rhythm GI: COMMON NORMALS: Normal to inspection, nondistended, normoactive bowel sounds present Extremity: COMMON NORMALS: no pedal edema Neuro: AIMEE COMA SCALE: document GCS findings Aimee coma scale eye opening: Spontaneous Huggins coma scale verbal response: Orientated Aimee coma scale motor response: Obey commands Huggins coma scale total score: 15 S ENSORY EXAM: Yes extremities (intact) Psych: COMMON NORMALS: speech normal SPEECH: Yes normal speech Skin: NARRATIVE SKIN EXAM: Multiple excoriated small skin ulcerations at different ages of progression mainly present on face, upper arms. Course 2 Vital Signs: Vital signs: Vital Signs Temperature 99 F 04/19/24 17:00 Pulse Rate 78 04/19/24 20:02 Respiratory Rate 16 04/19/24 20:02 Blood Pressure 202/112 04/19/24 20:02 Pulse Oximetry 95 04/19/24 20:02 Oxygen Delivery Me thod Room Air 04/19/24 18:04 MDM - Dizziness Medical Decision Making This patient came in hypotensive, with a heart rate in the 80s. She has had several episodes of what appears to be sinus tachycardia with rates as high as 1 40-1 50. She is symptomatic with these. They seem to be self resolved. Her blood pressure is improved with 5 mg of IV metoprolol. Her heart rate is also down to 70 or so. She has been taking dabigatran for her history of chronic DVT problems and history of PE. As noted, she is already anticoagulated. Her D- dimer is negative. Her CBC is normal. Her BMP is normal. Her troponin, despite these episodes is only 8. Drug screen is negative. No other cause for intermittent tachycardias. As she is hypertensive, I would suggest keeping her on metoprolol hopefully to keep the symptoms of tachycardia at bay. She will need follow-up with her doctor, and outpatient follow-up with cardiology. Lab Data 04/19/24 17:49 04/19/24 18:36 Radiology Impressions Chest X-Ray 04/19/24 17:49 IMPRESSION: No acute findings. Laboratory Results WBC 5.34 10^3/uL (3.29-11.43) 04/19/24 17:49 RBC 4.39 10^6/uL (3.85-5.65) 04/19/24 17:49 Hgb 14.10 g/dL (11.27-16.99) 04/19/24 17:49 Hct 42.3 % (36-47) 04/19/24 17:49 MCV 96.4 fl (85-98) 04/19/24 17:49 MCH 32.1 pg (27-33) 04/19/24 17:49 MCHC 33.3 g/dL (30-55) 04/19/24 17:49 RDW 13.4 % (12.1-15.1) 04/19/24 17:49 Plt Count 308 10^3/cmm (157-399) 04/19/24 17:49 MPV 9.2 fL (7.4-10.4) 04/19/24 17:49 Neut % (Auto) 61.3 % 04/19/24 17:49 Lymph % (Auto) 25.5 % 04/19/24 17:49 Forest % (Auto) 11.0 % 04/19/24 17:49 Eos % (Auto) 0.9 % 04/19/24 17:49 Baso % (Auto) 1.1 % 04/19/24 17:49 Neut # (Auto) 3.27 10^3/uL (1.8-7.7) 04/19/24 17:49 Lymph # (Auto) 1.4 10^3/uL (0.8-4.8) 04/19/24 17:49 Forest # (Auto) 0.6 10^3/uL (0.2-0.9) 04/19/24 17:49 Eos # (Auto) 0.1 10^3/uL (0.0-0.8) 04/19/24 17:49 Baso # (Auto) 0.1 10^3/uL (0.0-0.1) 04/19/24 17:49 Nucleated RBC % (auto) 0 % 04/19/24 17:49 Nucleated RBCs # 0.0 /100WBC 04/19/24 17:49 D-Dimer 0.54 ug/mLFEU (0-0.59) 04/19/24 18:36 Sodium 137 mmol/L (136-145) 04/19/24 18:36 Potassium 4.1 mmol/L (3.5-5.1) 04/19/24 18:36 Chloride 101 mmol/L (98-107) 04/19/24 18:36 Carbon Dioxide 25 mmol/L (22-29) 04/19/24 18:36 Anion Gap 15.1 (5-19) 04/19/24 18:36 BUN 12 mg/dL (8-23) 04/19/24 18:36 Creatinine 0.6 mg/dL (0.5-0.9) 04/19/24 18:36 GFR Calculation Not Reportable 04/19/24 18:36 Glucose 114 mg/dL (65-115) 04/19/24 18:36 Calculated Osmolality 285 mOsm/kg (285-295) 04/19/24 18:36 Calcium 9.4 mg/dL (8.5-10.5) 04/19/24 18:36 Magnesium 2.0 mg/dL (1.7-2.3) 04/19/24 18:36 Total Bilirubin 0.3 mg/dL (0.15-1.2) 04/19/24 18:36 AST 24 U/L (0-32) 04/19/24 18:36 ALT 31 U/L (0-33) 04/19/24 18:36 Alkaline Phosphatase 94 U/L (35-105) 04/19/24 18:36 Troponin T Baseline 8 ng/L (0-10) 04/19/24 18:36 Total Protein 7.3 g/dL (6.6-8.7) 04/19/24 18:36 Albumin 4.1 g/dL (3.5-5.2) 04/19/24 18:36 Globulin 3.2 g/dL (1.3-4.6) 04/19/24 18:36 TSH 1.19 uIU/mL (0.27-4.20) 04/19/24 18:36 Urine Color Yellow (Yellow) 04/19/24 18:51 Urine Appearance Clear (CLEAR) 04/19/24 18:51 Urine pH 5 (5-7) 04/19/24 18:51 Ur Specific [place] 1.005 (1.005-1.030) 04/19/24 18:51 Urine Protein Neg (Negative) 04/19/24 18:51 Urine Glucose (UA) Norm (Normal) 04/19/24 18:51 Urine Ketones Negative (Negative) 04/19/24 18:51 Urine Blood 2+ (Negative) H 04/19/24 18:51 Urine Nitrate Negative (Negative) 04/19/24 18:51 Urine Bilirubin Neg (Negative) 04/19/24 18:51 Urine Urobilinogen Neg mg/dL (Negative) 04/19/24 18:51 Ur Leukocyte Esterase Negative (Negative) 04/19/24 18:51 Urine RBC 0-4 /hpf (0-2) H 04/19/24 18:51 Urine WBC 0-4 /hpf (0-5) H 04/19/24 18:51 Ur Squamous Epith Cells 5-10 /hpf (0-5) H 04/19/24 18:51 Amorphous Sediment Not Reportable 04/19/24 18:51 Urine Bacteria Trace /hpf (NONE) 04/19/24 18:51 Urine Mucus Trace /hpf 04/19/24 18:51 Urine Opiates Screen Negative ng/mL (Negative) 04/19/24 18:51 Ur Barbiturates Screen Negative ng/mL (Negative) 04/19/24 18:51 Ur Phencyclidine Scrn Negative ng/mL (Negative) 04/19/24 18:51 Ur Amphetamines Screen Negative ng/mL (Negative) 04/19/24 18:51 U Benzodiazepines Scrn Negative ng/mL (Negative) 04/19/24 18:51 Urine Cocaine Screen Negative ng/mL (Negative) 04/19/24 18:51 U Marijuana (THC) Screen Negative ng/mL (Negative) 04/19/24 18:51 All radiology interpretation(s) finalized by discharge Discharge Plan Discharge Patient Disposition: Home Clinical Impression: Tachycardia, Hypertension Condition: Stable Prescriptions: New metoprolol tartrate 25 mg tablet 25 mg PO BID Qty: 60 0RF No Action multivitamin Tablet 1 tab PO QAM ciprofloxacin HCl 250 mg tablet 250 mg PO BID 5 Days Qty: 10 0RF ProAir HFA 90 mcg/actuation HFA aerosol inhaler 1 puff INHALATION Q6H PRN (Reason: Shortness Of Breath) Qty: 8.5 11RF prednisone 20 mg tablet See Rx Instructions PO .COMPLEX PRN (Reason: joint pain flare) Qty: 30 0RF Rx Instructions: take 1 daily for 3-7 days PRN joint pain flare PO PRN; tramadol 50 mg tablet 50 mg PO QID PRN (Reason: Pain) Qty: 120 3RF dabigatran etexilate [Pradaxa] 75 mg capsule See Rx Instructions .ROUTE .COMPLEX Qty: 60 11RF Dose Instruction: TAKE 1 CAPSULE TWICE A DAY Rx Instructions: TAKE 1 CAPSULE TWICE A DAY ferrous sulfate 325 mg (65 mg iron) tablet 325 mg PO BID Qty: 60 11RF Discharge Orders: Discharge ED (Routine); Ordered 04/19/24 Ordered By: Diogenes Dickerson Referrals: Wali Holguin MD [Primary Care Provider] - 4-7 days Patient Instructions: Opioid Safety, Pain Management Activity Restrictions/Additional Instructions: Case management should be in contact with you to set up a Holter monitor at [facility], and to follow-up with a heart doctor. In the meantime medications as directed. In the meantime attempt to cut back on caffeine intake as we discussed, and follow-up with your regular doctor. Return for worsening symptoms despite treatment, development of significant chest pain, other concerning symptoms. 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
[2024-04-19 19:36] VITALS: BP 189/106; PULSE 76; RESP 16; O2SAT 95
--- NOTE | 2024-04-19 19:52 | ECG_ITS ---
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 Measurements Intervals [place] Rate: 71 P: 50 [place]: 169 QRS: 8 QRSD: 93 T: 44 QT: 379 QTc: 415 Interpretive Statements SINUS RHYTHM Compared to ECG 04/19/2024 17:04:28 No significant changes Electronically Signed On 04-19-2024 21:40:13 CDT by Jose Antonio Rene M.D. [email or web address]/store/OM/[id number]
[2024-04-19 20:02] VITALS: BP 202/112; PULSE 78; RESP 16; O2SAT 95
--- NOTE | 2024-04-20 08:06 | DCPLANNER ---
messaged heart care for er f/u
== END 2024-04-19 20:28 | disposition home or self-care (01) ==
PROVIDERS: Emergency Medicine; Emergency Provider Emergency Medicine; PCP Family Medicine
DX: R00.0 Tachycardia, unspecified (principal); I10 Essential (primary) hypertension; Z87.891 Personal history of nicotine dependence
CPT/HCPCS: 36415; 71045; 80053; 80306; 81001; 83735; 84443; 84484; 85025; 85378; 93005; 96374; 99285; J3490

== ENCOUNTER 2024-04-23 14:28 | Outpatient (CLI) | payer MEDICARE, OTHER, SELFPAY ==
--- NOTE | 2024-04-23 14:30 | CTR_ITS ---
PROCEDURE INFORMATION: Exam: CTA Chest With Contrast Exam date and time: 04/23/2024 2:49 PM Age: 73 years old Clinical indication: Shortness of breath; Prior surgery; Surgery date: 6+ months; Surgery type: RT breast; Patient HX: HX of pe, tachycardia, irregular heart rate, increased BP, sweating, light headedness and shaky x 1 week TECHNIQUE: Imaging protocol: Computed tomographic angiography of the chest with contrast. Exam focused on the arteries. 3D rendering (Not supervised by radiologist): MIP and/or 3D reconstructed images were created by the technologist. Radiation optimization: All CT scans at this facility use at least one of these dose optimization techniques: automated exposure control; mA and/or kV adjustment per patient size (includes targeted exams where dose is matched to clinical indication); or iterative reconstruction. Contrast material: OMNI 350; Contrast volume: 100 ml; Contrast route: INTRAVENOUS (IV); COMPARISON: CT angio chest PE protcl [id number] 01/10/2018 9:57 AM RADIATION DOSE METRICS: Total DLP (mGy-cm): 396.73 FINDINGS: Pulmonary arteries: Normal. No pulmonary emboli. Aorta: Unremarkable. No aortic aneurysm. No aortic dissection. Lungs: Unchanged small amounts of subsegmental atelectasis in the lungs. Unchanged tiny bleb posterior right lung base. Otherwise, unremarkable. Pleural spaces: Unremarkable. No pneumothorax. No pleural effusion. Heart: Unchanged mild cardiomegaly. No evidence of right heart strain. The right ventricular to left ventricular ratio is 0.9. Coronary arteries: Unchanged small amount of coronary artery calcification. Lymph nodes: Unremarkable. No enlarged lymph nodes. Diaphragm: Unchanged large hiatal hernia. Liver: Benign cyst in the dome of the liver. Otherwise, unremarkable visualized liver. Intestine: Again noted are diverticula from the visualized colon. No diverticulitis visualized colon. Bones/joints: Unchanged moderate scoliosis, mild kyphosis, and mild and moderate multilevel spondylosis. Otherwise, unremarkable. Soft tissues: The Otherwise, unremarkable visualized body wall. Otherwise, unremarkable soft tissues. CT/CT angio chest PE protcl [id number] IMPRESSION: 1. No pulmonary embolism. 2. Additional details as above. Unchanged.
[2024-04-23] MEDS: iohexol 350 mg/mL 500 mL Btl (per mL) IV (15:02)
== END 2024-04-23 14:29 | disposition home or self-care (01) ==
PROVIDERS: PCP Family Medicine; Visit Provider Family Medicine
DX: R00.0 Tachycardia, unspecified (principal); Z86.718 Personal history of other venous thrombosis and embolism; J98.11 Atelectasis; K44.9 Diaphragmatic hernia without obstruction or gangrene; Q44.6 Cystic disease of liver
CPT/HCPCS: 71275; Q9967

== ENCOUNTER → 2024-04-28 15:17 | Outpatient (BNVA) | payer MEDICARE, OTHER, SELFPAY | PROVIDERS: PCP Family Medicine; Visit Provider Internal Medicine Cardiovascular Disease | DX: R00.2 Palpitations (principal); I49.1 Atrial premature depolarization; I49.3 Ventricular premature depolarization; R00.0 Tachycardia, unspecified | CPT/HCPCS: 93242 ==

== ENCOUNTER 2024-05-01 13:34 | Emergency (ER) | payer MEDICARE, OTHER, SELFPAY ==
--- NOTE | 2024-05-01 13:35 | ECG_ITS ---
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 Measurements Intervals [place] Rate: 144 P: 22 [place]: 161 QRS: 37 QRSD: 97 T: 55 QT: 307 QTc: 477 Interpretive Statements SINUS TACHYCARDIA, POSSIBLE ATRIAL FLUTTER MINIMAL ST DEPRESSION [0.025+ mV ST DEPRESSION] ABNORMAL RHYTHM ECG Compared to ECG 04/19/2024 19:52:25 ST (T wave) deviation now present Sinus rhythm no longer present Electronically Signed On 05-01-2024 20:41:45 CDT by Irving Carballo M.D. [id number]
[2024-05-01 13:43] VITALS: BP 170/104; PULSE 147; RESP 18; TEMP 36.8; O2SAT 94
--- NOTE | 2024-05-01 13:54 | W.ED.ARRPALP ---
HPI - Arrhythmia/Palpitations General: Chief Complaint: Arrhythmia/Palpitations Stated Complaint: sob, hr inconsistant, dizzy Time Seen by Provider: 05/01/24 13:53 Source: patient Mode of arrival: ambulatory History of Present Illness: 73-year-old female presents to the emergency room complaining of racing heart rate dizziness shaking shortness of breath. This began after she was burning some debris outside. She was exposed to moderate amount of smoke. She went inside and felt a racing heart rate. She has been seen previously for the same thing she is currently on metoprolol she has been taking her metoprolol regularly did not decreased or change the dose otherwise. No chest discomfort no shortness of breath initially in triage her heart rate was significantly elevated with a rhythm of a flutter. When she presented to the exam room and examined her heart rate was now in the 70s and she appeared to be intermittently in a flutter at the time of this dictation on her monitor at she is in normal sinus rhythm. This has been an ongoing issue she was recently placed on a Holter monitor but because of outdoor work she did sweated and monitor was no longer staying affect so they were making other arrangements to complete the Holter monitoring. She has noted in the past that by taking a deep breath and holding her breath she is able to get her heart rate to slow down. MD complaint: rapid heart beat and heart racing Duration: intermittent Arrhythmia history: atrial fibrillation Associated symptoms: Deny anxiety, cough, diaphoresis, muscle cramps, nausea, paresthesias, pre-syncope, sense of impending doom, short of breath, syncope or vomiting Treatments prior to arrival: vagal maneuvers Review of Systems Const: Denies: diaphoresis Card: Denies: syncope or pre-syncope Resp: Denies: dyspnea GI: Denies: nausea or vomiting : Denies: dysuria, urinary frequency or urinary urgency Musc: Denies: muscle cramps Skin/Breast: Denies: rash Psych: Denies: anxiety PFSH ED PFSH: Medical History Skin rash Polyarthralgia URI with cough and congestion Anemia Osteoarthritis Other asthma Personal history of other venous thrombosis and embolism Rheumatoid arthritis, unspecified this was ruled out by Dr. Andrade in 2019 GERD (gastroesophageal reflux disease) Plantar fascial fibromatosis of left foot Surgical History History of tubal ligation Done laparoscopically at the age of 23 H/O right wrist surgery Right wrist fracture repair S/P foot surgery, left Left foot fracture repair History of lumpectomy of right breast Lump removal X 3 from right breast; benign per patient. Status post laparoscopic-assisted sigmoidectomy Laparoscopic sigmoid colectomy performed on 02/04/2017, Done by Dr. Turcios at [facility] [place] for symptomatic diverticulosis/diverticulitis H/O bladder repair surgery Anterior vaginal repair with porcine graft placement, ureteral pubic urethral sling and cystoscopy performed on 10/02/[address] Barajas for cystocele and stress urinary incontinence. Operative report scanned into computer. History of total hip replacement 2 times. Has had right-sided total hip replacement 2 times. Had a DVT after the first 1. History of hysterectomy Vaginal hysterectomy, Done for prolapse at the age of 45. She was told that she has no cancer or precancer. Ovaries spared. History of dilation and curettage Done for heavy vaginal bleeding in her 40s History of tonsillectomy Done at the age of 27. Family History Mother Heart disease Cancer Breast and thyroid Diabetes Hypertension Father Heart disease Cancer Bone cancer Lung disease Hypertension Son Heart disease One son from a heart attack at the age of 45 Cancer Family/Other Diabetes Maternal Aunt, Maternal Uncle Brother Cancer Grandfather Cancer Grandmother Cancer Denies family history of Rheumatoid arthritis Psoriatic arthritis Heart attack Psoriasis Social History Smoking and tobacco/nicotine status: former use of tobacco/nicotine Quit status (tobacco/nicotine): has quit using Year quit tobacco: 12/26/22 Alcohol intake: never Substance/Drug Use: never Female Reproductive History: Para: 1 ( (1 son at the age of 45 in 2017 from a myocardial infarction) X 2) Spontaneous abortions: No Physical Exam Const: COMMON NORMALS: no acute distress GENERAL APPEARANCE: cooperative and comfortable ORIENTATION/CONSCIOUSNESS: Yes awake, Yes oriented to person, Yes oriented to place and Yes oriented to time HENMT: COMMON NORMALS: normocephalic, atraumatic and hearing grossly normal bilaterally HEAD & SCALP: normocephalic and atraumatic Resp: COMMON NORMALS: normal respiratory effort, No retractions, No use of accessory muscles and clear to auscultation bilaterally AUSCULTATION: clear to auscultation bilaterally Cardio: COMMON NORMALS: regular rate, regular rhythm and No murmurs present (Cardio) RATE: regular rate RHYTHM: regular rhythm GI: COMMON NORMALS: Soft to palpation and No hepatosplenomegaly present AUSCULTATION: Yes normoactive bowel sounds PALPATION: Yes Soft to palpation, No Tenderness to palpation present (GI), No Guarding due to palpation present (GI) and Yes No hepatosplenomegaly present Extremity: COMMON NORMALS: normal to inspection, capillary refill normal, no clubbing, cyanosis or edema, no calf tenderness and no pedal edema Neuro: SENSORIUM/ORIENTATION: Yes oriented to person, Yes oriented to place and Yes oriented to time Skin: COMMON NORMALS: no rashes or lesions noted GENERAL SKIN EXAM: no rashes or lesions noted Course Vital Signs: Vital signs: Vital Signs Temperature 98.2 F 05/01/24 13:43 Pulse Rate 62 05/01/24 15:55 Respiratory Rate 17 05/01/24 15:55 Blood Pressure 193/100 05/01/24 15:55 Pulse Oximetry 96 05/01/24 15:55 Oxygen Delivery Me thod Room Air 05/01/24 15:00 MDM - Arrhythmia/Palpitations Medical Decision Making Heart rate resolved spontaneously. Patient is feeling fine at this time we will discharge her home continue her current medications her heart rate was in the low to mid 60s increasing is not really a good option at this point she is currently got a Holter monitor in place to evaluate further for change in rate control approach. She completed the return to the emergency room if she has further symptoms. Medical Records I reviewed the patient's medical records. Lab Data I reviewed the patient's lab results. 05/01/24 14:06 05/01/24 14:06 Radiology Impressions Chest X-Ray 05/01/24 14:04 IMPRESSION: 1. No acute cardiopulmonary finding. 2. Large hiatal hernia. Laboratory Results WBC 5.52 10^3/uL (3.29-11.43) 05/01/24 14:06 RBC 4.31 10^6/uL (3.85-5.65) 05/01/24 14:06 Hgb 13.80 g/dL (11.27-16.99) 05/01/24 14:06 Hct 41.5 % (36-47) 05/01/24 14:06 MCV 96.3 fl (85-98) 05/01/24 14:06 MCH 32.0 pg (27-33) 05/01/24 14:06 MCHC 33.3 g/dL (30-55) 05/01/24 14:06 RDW 12.8 % (12.1-15.1) 05/01/24 14:06 Plt Count 307 10^3/cmm (157-399) 05/01/24 14:06 MPV 8.9 fL (7.4-10.4) 05/01/24 14:06 Neut % (Auto) 59.0 % 05/01/24 14:06 Lymph % (Auto) 28.3 % 05/01/24 14:06 [place] % (Auto) 10.3 % 05/01/24 14:06 Eos % (Auto) 1.3 % 05/01/24 14:06 Baso % (Auto) 0.9 % 05/01/24 14:06 Neut # (Auto) 3.26 10^3/uL (1.8-7.7) 05/01/24 14:06 Lymph # (Auto) 1.6 10^3/uL (0.8-4.8) 05/01/24 14:06 [place] # (Auto) 0.6 10^3/uL (0.2-0.9) 05/01/24 14:06 Eos # (Auto) 0.1 10^3/uL (0.0-0.8) 05/01/24 14:06 Baso # (Auto) 0.1 10^3/uL (0.0-0.1) 05/01/24 14:06 Nucleated RBC % (auto) 0 % 05/01/24 14:06 Nucleated RBCs # 0.0 /100WBC 05/01/24 14:06 Sodium 139 mmol/L (136-145) 05/01/24 14:06 Potassium 4.1 mmol/L (3.5-5.1) 05/01/24 14:06 Chloride 101 mmol/L (98-107) 05/01/24 14:06 Carbon Dioxide 28 mmol/L (22-29) 05/01/24 14:06 Anion Gap 14.1 (5-19) 05/01/24 14:06 BUN 15 mg/dL (8-23) 05/01/24 14:06 Creatinine 0.8 mg/dL (0.5-0.9) 05/01/24 14:06 GFR Calculation Not Reportable 05/01/24 14:06 Glucose 93 mg/dL (65-115) 05/01/24 14:06 Calculated Osmolality 289 mOsm/kg (285-295) 05/01/24 14:06 Calcium 9.2 mg/dL (8.5-10.5) 05/01/24 14:06 Magnesium 1.9 mg/dL (1.7-2.3) 05/01/24 14:06 Total Bilirubin 0.4 mg/dL (0.15-1.2) 05/01/24 14:06 AST 19 U/L (0-32) 05/01/24 14:06 ALT 23 U/L (0-33) 05/01/24 14:06 Alkaline Phosphatase 89 U/L (35-105) 05/01/24 14:06 Total Protein 7.3 g/dL (6.6-8.7) 05/01/24 14:06 Albumin 4.0 g/dL (3.5-5.2) 05/01/24 14:06 Globulin 3.3 g/dL (1.3-4.6) 05/01/24 14:06 TSH 2.45 uIU/mL (0.27-4.20) 05/01/24 14:06 Urine Color Yellow (Yellow) 05/01/24 14:35 Urine Appearance Clear (CLEAR) 05/01/24 14:35 Urine pH 6 (5-7) 05/01/24 14:35 Ur Specific Wing 1.015 (1.005-1.030) 05/01/24 14:35 Urine Protein Neg (Negative) 05/01/24 14:35 Urine Glucose (UA) Norm (Normal) 05/01/24 14:35 Urine Ketones Negative (Negative) 05/01/24 14:35 Urine Blood 2+ (Negative) H 05/01/24 14:35 Urine Nitrate Negative (Negative) 05/01/24 14:35 Urine Bilirubin Neg (Negative) 05/01/24 14:35 Urine Urobilinogen Norm mg/dL (Negative) 05/01/24 14:35 Ur Leukocyte Esterase Negative (Negative) 05/01/24 14:35 Urine RBC Rare /hpf (0-2) 05/01/24 14:35 Urine WBC None /hpf (0-5) 05/01/24 14:35 Ur Squamous Epith Cells 0-4 /hpf (0-5) H 05/01/24 14:35 Amorphous Sediment Not Reportable 05/01/24 14:35 Urine Bacteria Trace /hpf (NONE) 05/01/24 14:35 All radiology interpretation(s) finalized by discharge Discharge Plan Discharge Patient Disposition: Home Clinical Impression: Atrial flutter Condition: Stable Prescriptions: No Action multivitamin Tablet 1 tab PO QAM tramadol 50 mg tablet 50 mg PO QID PRN (Reason: Pain) Qty: 120 3RF ferrous sulfate 325 mg (65 mg iron) tablet 325 mg PO BID Qty: 60 11RF metoprolol tartrate 25 mg tablet 25 mg PO BID Qty: 60 0RF omeprazole 20 mg capsule,delayed release(DR/EC) 20 mg PO BID Pradaxa 75 mg capsule 75 mg PO BID Discharge Orders: Discharge ED (Routine); Ordered 05/01/24 Ordered By: Michele Berger Referrals: Wali Holguin MD [Primary Care Provider] - Discharge Diet: Usual diet Discharge Activity: Resume usual activity and Wheelchair as instructed Patient Instructions: Opioid Safety, Pain Management Activity Restrictions/Additional Instructions: Thank you for choosing [facility] for your healthcare needs today. It is very important that you follow up as instructed or that you return to the Emergency Department should you have concerns or if your condition changes or worsens in any way. You were seen in the emergency room for rapid heart rate. This resolved spontaneously. It is likely because you have taken the metoprolol shortly before coming to the emergency room. At that time we discussed your discharge your heart rate was in the low 60s well-controlled with the medication. Do not recommend any medication changes at this time and to recommend you complete the Holter monitor and follow-up with your assurance senior manager return to the emergency room if you have recurrence of symptoms. Coding Level of Care Code ED Lab Support Service Tech for Terra Thompson
--- NOTE | 2024-05-01 14:04 | XR_ITS ---
WS: [id number] Exam: XR chest 1V portable [id number] Date/Time of Exam: 05/01/2024 2:18 PM Reason For Exam: dyspnea/cough Comparison 04/19/2024. The lungs are fully inflated and clear. Normal cardiomediastinal silhouette. Large hiatal hernia. No pleural effusions. Bony structures are intact. S-shaped thoracolumbar scoliosis. XR/XR chest 1V portable [id number] IMPRESSION: 1. No acute cardiopulmonary finding. 2. Large hiatal hernia.
[2024-05-01 14:12] LABS: Basophils # 0.1 10^3/uL (0.0-0.1); Basophils % 0.9 %; Eosinophils # 0.1 10^3/uL (0.0-0.8); Eosinophils % 1.3 %; Hematocrit 41.5 % (36-47); Lymphocytes # 1.6 10^3/uL (0.8-4.8); Lymphocytes % 28.3 %; Mean Corpuscular HGB Conc 33.3 g/dL (30-55); Mean Corpuscular Volume 96.3 fl (85-98); Mean Platelet Volume 8.9 fL (7.4-10.4); Monocytes # 0.6 10^3/uL (0.2-0.9); Monocytes % 10.3 %; Neutrophils # 3.26 10^3/uL (1.8-7.7); Nucleated Red Blood Cells % 0 %; Platelet Count 307 10^3/cmm (157-399); Red Blood Count 4.31 10^6/uL (3.85-5.65); Red Cell Distribution Width 12.8 % (12.1-15.1); White Blood Count 5.52 10^3/uL (3.29-11.43)
[2024-05-01 14:40] LABS: Alanine Aminotransferase 23 U/L (0-33); Alkaline Phosphatase 89 U/L (35-105); Anion Gap 14.1 (5-19); Aspartate Amino Transferase 19 U/L (0-32); Blood Urea Nitrogen 15 mg/dL (8-23); Calcium 9.2 mg/dL (8.5-10.5); Carbon Dioxide 28 mmol/L (22-29); Chloride 101 mmol/L (98-107); Creatinine Clr Calc Pharmacy 70.5508; Globulin 3.3 g/dL (1.3-4.6); Glucose 93 mg/dL (65-115); Magnesium 1.9 mg/dL (1.7-2.3); Osmolality Calculated 289 mOsm/kg (285-295); Potassium 4.1 mmol/L (3.5-5.1); Sodium 139 mmol/L (136-145); Thyroid Stimulating Hormone 2.45 uIU/mL (0.27-4.20); Total Bilirubin 0.4 mg/dL (0.15-1.2); Total Protein 7.3 g/dL (6.6-8.7)
[2024-05-01 14:49] LABS: Bilirubin Urine Neg (Negative); Blood Urine 2+ (Negative); Glucose Urine UA Norm (Normal); Ketones Urine Negative (Negative); Leukocyte Esterase Urine Negative (Negative); Nitrate Urine Negative (Negative); Protein Urine Neg (Negative); Specific Gravity, Urine 1.015 (1.005-1.030); Urine Appearance Clear (CLEAR); Urine Color Yellow (Yellow); Urobilinogen Urine Norm (Negative); pH Urine 6 (5-7)
[2024-05-01 14:50] LABS: Add Urine Microscopic? YES
[2024-05-01 14:51] LABS: Add Urine Culture? No; Bacteria Urine TRACE /hpf; RBC Urine RARE /hpf (0-2); Squamous Epithelial Cell Urine 0-4 /hpf (0-5)
[2024-05-01 15:00] VITALS: BP 178/102; PULSE 68; O2SAT 96
[2024-05-01 15:55] VITALS: BP 193/100; PULSE 62; RESP 17; O2SAT 96
== END 2024-05-01 15:58 | disposition home or self-care (01) ==
PROVIDERS: Emergency Provider Family Medicine; PCP Family Medicine
DX: I48.92 Unspecified atrial flutter (principal); Z87.891 Personal history of nicotine dependence
CPT/HCPCS: 71045; 80053; 81001; 83735; 84443; 85025; 93005; 99285

== ENCOUNTER 2024-05-10 01:43 | Emergency (ER) | payer MEDICARE, OTHER, SELFPAY ==
[2024-05-10 01:49] VITALS: BMI 31.8
--- NOTE | 2024-05-10 01:52 | XRR_ITS ---
PROCEDURE INFORMATION: Exam: XR Chest Exam date and time: 05/10/2024 1:57 AM Age: 73 years old Clinical indication: Chest pressure; Prior surgery; Surgery date: 6+ months; Surgery type: RT breast lumpectomy; Patient HX: C/O chest pain. Wearing external heart monitor. TECHNIQUE: Imaging protocol: Radiologic exam of the chest. Views: 1 view. COMPARISON: CR XR chest 1V portable [id number] 05/01/2024 2:20 PM FINDINGS: Lungs: Subtle increased interstitial opacities are seen bilaterally, findings could represent mild pulmonary edema. Pleural spaces: Unremarkable. No pleural effusion. No pneumothorax. Heart/Mediastinum: An external heart monitor overlies the heart and mediastinum. Bones/joints: Unremarkable. Soft tissues: There is a prominent hernia present. XR/XR chest 1V portable [id number] IMPRESSION: 1. Subtle increased interstitial opacities could represent mild pulmonary edema. 2. Moderate hiatal hernia
--- NOTE | 2024-05-10 01:53 | ECG_ITS ---
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 Measurements Intervals [place] Rate: 68 P: 22 OK: 135 QRS: 12 QRSD: 97 T: 48 QT: 386 QTc: 413 Interpretive Statements SINUS RHYTHM Compared to ECG 05/01/2024 13:35:28 ST (T wave) deviation no longer present Electronically Signed On 05-10-2024 19:20:16 CDT by Jose Antonio Rene M.D. [id number]
[2024-05-10 01:54] VITALS: BP 180/106; PULSE 70; RESP 18; TEMP 36.6; O2SAT 95
[2024-05-10 02:00] VITALS: BP 159/89; PULSE 66; RESP 16; O2SAT 93
[2024-05-10 02:26] LABS: Basophils # 0.1 10^3/uL (0.0-0.1); Basophils % 0.9 %; Eosinophils # 0.1 10^3/uL (0.0-0.8); Eosinophils % 1.5 %; Lymphocytes # 2.6 10^3/uL (0.8-4.8); Lymphocytes % 39.8 %; Mean Corpuscular HGB Conc 32.6 g/dL (30-55); Mean Corpuscular Hemoglobin 32.1 pg (27-33); Mean Corpuscular Volume 98.6 fl (85-98); Mean Platelet Volume 9.4 fL (7.4-10.4); Monocytes % 15.1 %; Neutrophils # 2.76 10^3/uL (1.8-7.7); Neutrophils % 42.5 %; Nucleated Red Blood Cells % 0 %; Platelet Count 286 10^3/cmm (157-399); Red Blood Count 4.36 10^6/uL (3.85-5.65)
[2024-05-10 02:34] LABS: Troponin(5th) Baseline 9 ng/L (0-10)
[2024-05-10 02:41] LABS: Alanine Aminotransferase 29 U/L (0-33); Albumin Level 4.1 g/dL (3.5-5.2); Alkaline Phosphatase 95 U/L (35-105); Anion Gap 14.2 (5-19); Aspartate Amino Transferase 28 U/L (0-32); Blood Urea Nitrogen 15 mg/dL (8-23); Calcium 9.2 mg/dL (8.5-10.5); Carbon Dioxide 29 mmol/L (22-29); Chloride 97 mmol/L (98-107); Creatinine Clr Calc Pharmacy 63.3755; Globulin 3.2 g/dL (1.3-4.6); Glucose 91 mg/dL (65-115); NT Pro B Type Natriuretic Pept 268 pg/mL (0-125); Osmolality Calculated 282 mOsm/kg (285-295); Potassium 4.2 mmol/L (3.5-5.1); Sodium 136 mmol/L (136-145); Total Bilirubin 0.2 mg/dL (0.15-1.2); Total Protein 7.3 g/dL (6.6-8.7)
[2024-05-10 03:06] VITALS: BP 143/75; PULSE 61; RESP 16; O2SAT 94
--- NOTE | 2024-05-10 03:21 | ECG_ITS ---
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 Measurements Intervals [place] Rate: 60 P: 30 AR: 148 QRS: 14 QRSD: 102 T: 69 QT: 430 QTc: 433 Interpretive Statements SINUS RHYTHM Compared to ECG 05/01/2024 13:35:28 ST (T wave) deviation no longer present Electronically Signed On 05-10-2024 19:28:06 CDT by Jose Antonio Rene M.D. [email or web address] [id number]
[2024-05-10 03:25] LABS: INR 0.99 (0.8-1.2); Partial Thromboplastin Time 33.7 SECONDS (23.9-36.7)
[2024-05-10 03:30] VITALS: BP 165/95; PULSE 62; RESP 14; O2SAT 96
--- NOTE | 2024-05-10 03:44 | ED_ITS ---
HPI - Chest Pain 2 General: Chief Complaint: Chest Pain Stated Complaint: Chest pain Time Seen by Provider: 05/10/24 01:56 History of Present Illness: Ms. Mathews is 73 years old. She has had a couple of presentations to the emergency department for palpitations. Tonight she had chest discomfort. She notes that she had palpitations part of the day prior, but began to get chest pressure around 8 PM, that did not let up on its own. It is resolved now. She was sitting in her recliner when the pressure started. She is currently wearing a Holter monitor, with a history of these palpitations. She is on Pradaxa for history of DVT/PE. She is also on metoprolol for rate control, and control of her blood pressure. Associated symptoms: Reports dyspnea and palpitations; Deny abdominal pain, fever(s), nausea or vomiting Review of Systems 2 Const: Denies: fever(s) ENMT: Reports: throat pain; Denies: hoarseness Card: Reports: chest pain and palpitations Resp: Reports: dyspnea; Denies: productive cough or non-productive cough GI: Denies: abdominal pain, nausea or vomiting PFSH ED 2 PFSH: Medical History Skin rash Polyarthralgia URI with cough and congestion Anemia Osteoarthritis Other asthma Personal history of other venous thrombosis and embolism Rheumatoid arthritis, unspecified this was ruled out by Dr. Andrade in 2019 GERD (gastroesophageal reflux disease) Plantar fascial fibromatosis of left foot Surgical History History of tubal ligation Done laparoscopically at the age of 23 H/O right wrist surgery Right wrist fracture repair S/P foot surgery, left Left foot fracture repair History of lumpectomy of right breast Lump removal X 3 from right breast; benign per patient. Status post laparoscopic-assisted sigmoidectomy Laparoscopic sigmoid colectomy performed on 02/04/2017, Done by Dr. Turcios at [facility] [place] for symptomatic diverticulosis/diverticulitis H/O bladder repair surgery Anterior vaginal repair with porcine graft placement, ureteral pubic urethral sling and cystoscopy performed on 10/02/[address] Barajas for cystocele and stress urinary incontinence. Operative report scanned into computer. History of total hip replacement 2 times. Has had right-sided total hip replacement 2 times. Had a DVT after the first 1. History of hysterectomy Vaginal hysterectomy, Done for prolapse at the age of 45. She was told that she has no cancer or precancer. Ovaries spared. History of dilation and curettage Done for heavy vaginal bleeding in her 40s History of tonsillectomy Done at the age of 27. Family History Mother Heart disease Cancer Breast and thyroid Diabetes Hypertension Father Heart disease Cancer Bone cancer Lung disease Hypertension Son Heart disease One son from a heart attack at the age of 45 Cancer Family/Other Diabetes Maternal Aunt, Maternal Uncle Brother Cancer Grandfather Cancer Grandmother Cancer Denies family history of Rheumatoid arthritis Psoriatic arthritis Heart attack Psoriasis Social History Smoking and tobacco/nicotine status: former use of tobacco/nicotine Quit status (tobacco/nicotine): has quit using Year quit tobacco: 12/26/22 Alcohol intake: never Substance/Drug Use: never Female Reproductive History: Para: 1 ( (1 son at the age of 45 in 2017 from a myocardial infarction) X 2) Spontaneous abortions: No Physical Exam 2 Const: COMMON NORMALS: no acute distress GENERAL APPEARANCE: cooperative; not ill appearing and not frail appearing HENMT: COMMON NORMALS: normocephalic, atraumatic and Normal external nose present HEAD & SCALP: normocephalic and atraumatic FACE & SINUS: normal facial exam and face symmetric NOSE: Normal external nose present Eye: COMMON NORMALS: Equal, round and reactive pupils present and EOMs intact bilaterally PUPIL: Yes Equal, round and reactive pupils present Neck/C-Spine: GENERAL: Yes trachea midline Chest: CHEST: Yes Symmetrical chest wall rise Resp: COMMON NORMALS: normal respiratory effort, No retractions, No use of accessory muscles and clear to auscultation bilaterally AUSCULTATION: clear to auscultation bilaterally Cardio: COMMON NORMALS: regular rate and regular rhythm RATE: regular rate RHYTHM: regular rhythm GI: COMMON NORMALS: Normal to inspection, nondistended, normoactive bowel sounds present Extremity: COMMON NORMALS: no pedal edema Neuro: AIMEE COMA SCALE: document GCS findings Aimee coma scale eye opening: Spontaneous Aimee coma scale verbal response: Orientated Aimee coma scale motor response: Obey commands [place] coma scale total score: 15 S ENSORY EXAM: Yes extremities (intact) Psych: COMMON NORMALS: speech normal SPEECH: Yes normal speech Course 2 Vital Signs: Vital signs: Vital Signs Temperature 98 F 05/10/24 01:54 Pulse Rate 61 05/10/24 04:30 Respiratory Rate 16 05/10/24 04:30 Blood Pressure 156/85 05/10/24 04:30 Pulse Oximetry 94 05/10/24 04:30 MDM - Chest Pain Medical Decision Making Patient's vitals have been stable here. She is hypertensive on arrival, but this is self resolved. Saturations are normal. EKG shows a normal sinus rhythm, normal axis and intervals. Rate is 60. There are no ST changes. Chest x-ray reveals minimal/subtle increased interstitial opacities, possibly mild pulmonary edema although her BNP is only 268. PE is unlikely given no persistent tachycardia here, normal saturations, and chronic anticoagulation on Pradaxa. Her troponin is 9. Awaiting a 2-hour. She does have a moderate hiatal hernia on chest x-ray. Results of her Holter monitor are not yet available. 2-hour troponin stable. She is still asymptomatic. Outpatient follow-up encouraged. Lab Data 05/10/24 01:59 05/10/24 01:59 Radiology Impressions Chest X-Ray 05/10/24 01:52 IMPRESSION: 1. Subtle increased interstitial opacities could represent mild pulmonary edema. 2. Moderate hiatal hernia Laboratory Results WBC 6.50 10^3/uL (3.29-11.43) 05/10/24 01:59 RBC 4.36 10^6/uL (3.85-5.65) 05/10/24 01:59 Hgb 14.00 g/dL (11.27-16.99) 05/10/24 01:59 Hct 43.0 % (36-47) 05/10/24 01:59 MCV 98.6 fl (85-98) H 05/10/24 01:59 MCH 32.1 pg (27-33) 05/10/24 01:59 MCHC 32.6 g/dL (30-55) 05/10/24 01:59 RDW 13.0 % (12.1-15.1) 05/10/24 01:59 Plt Count 286 10^3/cmm (157-399) 05/10/24 01:59 MPV 9.4 fL (7.4-10.4) 05/10/24 01:59 Neut % (Auto) 42.5 % 05/10/24 01:59 Lymph % (Auto) 39.8 % 05/10/24 01:59 [place] % (Auto) 15.1 % 05/10/24 01:59 Eos % (Auto) 1.5 % 05/10/24 01:59 Baso % (Auto) 0.9 % 05/10/24 01:59 Neut # (Auto) 2.76 10^3/uL (1.8-7.7) 05/10/24 01:59 Lymph # (Auto) 2.6 10^3/uL (0.8-4.8) 05/10/24 01:59 [place] # (Auto) 1.0 10^3/uL (0.2-0.9) H 05/10/24 01:59 Eos # (Auto) 0.1 10^3/uL (0.0-0.8) 05/10/24 01:59 Baso # (Auto) 0.1 10^3/uL (0.0-0.1) 05/10/24 01:59 Nucleated RBC % (auto) 0 % 05/10/24 01:59 Nucleated RBCs # 0.0 /100WBC 05/10/24 01:59 PT 13.40 SECONDS (12.1-14.9) 05/10/24 01:59 INR 0.99 (0.8-1.2) 05/10/24 01:59 APTT 33.7 SECONDS (23.9-36.7) 05/10/24 01:59 Sodium 136 mmol/L (136-145) 05/10/24 01:59 Potassium 4.2 mmol/L (3.5-5.1) 05/10/24 01:59 Chloride 97 mmol/L (98-107) L 05/10/24 01:59 Carbon Dioxide 29 mmol/L (22-29) 05/10/24 01:59 Anion Gap 14.2 (5-19) 05/10/24 01:59 BUN 15 mg/dL (8-23) 05/10/24 01:59 Creatinine 0.7 mg/dL (0.5-0.9) 05/10/24 01:59 GFR Calculation Not Reportable 05/10/24 01:59 Glucose 91 mg/dL (65-115) 05/10/24 01:59 Calculated Osmolality 282 mOsm/kg (285-295) L 05/10/24 01:59 Calcium 9.2 mg/dL (8.5-10.5) 05/10/24 01:59 Total Bilirubin 0.2 mg/dL (0.15-1.2) 05/10/24 01:59 AST 28 U/L (0-32) 05/10/24 01:59 ALT 29 U/L (0-33) 05/10/24 01:59 Alkaline Phosphatase 95 U/L (35-105) 05/10/24 01:59 Troponin T Baseline 9 ng/L (0-10) 05/10/24 01:59 Troponin T 120 Minute 7.54 ng/L (0-10) 05/10/24 03:30 Delta Troponin T -1.46 ABS# (0-10) L 05/10/24 03:30 NT-Pro-B Natriuret Pep 268 pg/mL (0-125) H 05/10/24 01:59 Total Protein 7.3 g/dL (6.6-8.7) 05/10/24 01:59 Albumin 4.1 g/dL (3.5-5.2) 05/10/24 01:59 Globulin 3.2 g/dL (1.3-4.6) 05/10/24 01:59 All radiology interpretation(s) finalized by discharge Discharge Plan Discharge Patient Disposition: Home Clinical Impression: Chest pain Condition: Stable Prescriptions: No Action multivitamin Tablet 1 tab PO QAM ferrous sulfate 325 mg (65 mg iron) tablet 325 mg PO BID Qty: 60 11RF tramadol 50 mg tablet 50 mg PO QID PRN (Reason: Pain) Qty: 120 3RF metoprolol tartrate 25 mg tablet 25 mg PO BID Qty: 60 0RF omeprazole 20 mg capsule,delayed release(DR/EC) 20 mg PO BID Pradaxa 75 mg capsule 75 mg PO BID Discharge Orders: Discharge ED (Routine); Ordered 05/10/24 Ordered By: Diogenes Dickerson Referrals: Wali Holguin MD [Primary Care Provider] - 1-3 days Patient Instructions: Chest Pain (ED), Opioid Safety, Pain Management Activity Restrictions/Additional Instructions: Return for worsening chest discomfort, worsening shortness of breath, any other concerning symptoms. Keep your scheduled appointment with your doctor this week. Coding Level of Care Code ED Business Continuity Management Director for Terra Thompson
[2024-05-10 03:53] LABS: Troponin 5 2HR 7.54 ng/L (0-10)
[2024-05-10 03:54] LABS: Troponin 5 2HR Delta -1.46 ABS# (0-10)
[2024-05-10 04:00] VITALS: BP 139/85; PULSE 64; RESP 18; O2SAT 92
[2024-05-10 04:30] VITALS: BP 156/85; PULSE 61; RESP 16; O2SAT 94
== END 2024-05-10 05:11 | disposition home or self-care (01) ==
PROVIDERS: Emergency Provider Emergency Medicine; PCP Family Medicine
DX: R07.9 Chest pain, unspecified (principal); Z87.891 Personal history of nicotine dependence; K44.9 Diaphragmatic hernia without obstruction or gangrene
CPT/HCPCS: 71045; 80048; 80053; 83880; 84484; 85025; 85610; 85730; 93005; 99285

== ENCOUNTER → 2024-06-24 18:12 | Outpatient (BNVA) | payer MEDICARE, OTHER, SELFPAY | PROVIDERS: PCP Family Medicine; Visit Provider Registered Nurse Neonatal Intensive Care | DX: R30.0 Dysuria (principal) | CPT/HCPCS: 81000 ==

== ENCOUNTER 2024-11-11 15:43 | Outpatient (CLI) | payer MEDICARE, OTHER, SELFPAY ==
--- NOTE | 2024-11-11 15:45 | CTR_ITS ---
PROCEDURE INFORMATION: Exam: CT Abdomen And Pelvis With Contrast Exam date and time: 11/11/2024 5:49 PM Age: 74 years old Clinical indication: Acute; Prior surgery; Surgery date: 6+ months; Surgery type: Sigmoid colectomy for diverticulitis, RT hip, hyst, bladder sling; Patient HX: Abdominal pain with diarrhea, HX of diverticulitis TECHNIQUE: Imaging protocol: Computed tomography of the abdomen and pelvis with contrast. Radiation optimization: All CT scans at this facility use at least one of these dose optimization techniques: automated exposure control; mA and/or kV adjustment per patient size (includes targeted exams where dose is matched to clinical indication); or iterative reconstruction. Contrast material: OMNIPAQUE 350; Contrast volume: 100 ml; Contrast route: INTRAVENOUS (IV); Other contrast: Oral, omnipaque 350, 50 ml; COMPARISON: CT abdomen pelvis w con* [id number] 08/08/2018 11:15 AM RADIATION DOSE METRICS: Total DLP (mGy-cm): 864.54 FINDINGS: Diaphragm: There is a moderate hiatal hernia. Liver: Small left hepatic cyst. Otherwise, the liver is unremarkable. Gallbladder and biliary ducts: Normal. No calcified stones. No ductal dilation. Pancreas: Normal. No ductal dilation. Spleen: Normal. No splenomegaly. Adrenal glands: Normal. No mass. Kidneys and ureters: Normal. No hydronephrosis. Stomach and bowel: Scattered colon diverticula. No inflammatory change identified involving the GI tract. Oral contrast ingested. No signs of bowel obstruction. Postoperative changes from sigmoidectomy with anastomosis. Appendix: No evidence of appendicitis. Intraperitoneal space: Unremarkable. No free air. No significant fluid collection. Vasculature: Mild calcific plaque involves the abdominal aorta and iliac arteries. No abdominal aortic aneurysm. Lymph nodes: Unremarkable. No enlarged lymph nodes. Urinary bladder: Unremarkable as visualized. Reproductive: The uterus is surgically absent. Bones/joints: Postsurgical changes from right total hip replacement. There is mild left convex scoliosis of the lumbar spine. Soft tissues: Unremarkable. CT/CT abdomen pelvis w con* [id number] IMPRESSION: 1. Moderate hiatal hernia. 2. Diverticulosis. 3. No acute abnormality.
[2024-11-11] MEDS: iohexol 350 mg/mL 500 mL Btl (per mL) PO (17:44)
[2024-11-11 17:50] LABS: Blood Urea Nitrogen 8 mg/dL (8-23)
[2024-11-11] MEDS: iohexol 350 mg/mL 500 mL Btl (per mL) IV (17:57)
== END 2024-11-11 15:44 | disposition home or self-care (01) ==
LOC: RAD 15:44
PROVIDERS: PCP Family Medicine; Visit Provider Family Medicine
DX: K57.90 Diverticulosis of intestine, part unspecified, without perforation or abscess without bleeding (principal); Q44.6 Cystic disease of liver; Z90.710 Acquired absence of both cervix and uterus; Z93.6 Other artificial openings of urinary tract status; Z90.49 Acquired absence of other specified parts of digestive tract; Z96.641 Presence of right artificial hip joint
CPT/HCPCS: 74177; 82565; 84520

== ENCOUNTER 2025-01-05 17:35 | Emergency (ER) | payer MEDICARE, OTHER, SELFPAY ==
[2025-01-05 17:40] VITALS: BP 182/131; PULSE 120; RESP 18; TEMP 36.6; O2SAT 96
[2025-01-05] MEDS: oxymetazoline 0.05% Nasal Spray 15 mL 2 SPRAY NOSTRIL-L (18:10)
--- NOTE | 2025-01-05 18:12 | ED_ITS ---
HPI - Epistaxis 2 General: Chief complaint: Epistaxis Stated complaint: nose bleed, been bleeding since noon, Time Seen by Provider: 01/05/25 17:46 Source: patient Mode of arrival: ambulatory Limitations: no limitations History of Present Illness: 74-year-old female is here with noseblee d states she has had a nosebleed on the left naris been intermittent throughout the day she is hypertensive here quite anxious she is on Pradaxa. She denies any worsening improving factors. It is currently stopped. Associated symptoms: Deny fever(s), headache(s) or vomiting Related Data Home Medications ?Medication ?Instructions ?Recorded ?Confirmed multivitamin 1 tab PO QAM 11/16/19 dabigatran etexilate 75 mg capsule 75 mg PO BID 01/04/25 (Pradaxa) Previous Rx's ?Medication ?Instructions ?Recorded ferrous sulfate 325 mg (65 mg 325 mg PO BID #60 tabs 0 01/22/24 iron) tablet omeprazole 20 mg capsule,delayed See Rx Instructions . Route 05/26/24 release .COMPLEX #180 caps metoprolol tartrate 25 mg tablet 25 mg PO BID #60 tabs 06/11/24 albuterol sulfate 90 mcg/actuation 1 puff inhalation Q 6H PRN 07/10/24 aerosol inhaler Shortness Of Breath #8.5 gra ms dabigatran etexilate 75 mg capsule 75 mg PO BID #180 c aps 07/17/24 (Pradaxa) tramadol 50 mg tablet 50 mg PO QID PRN Pain #120 t abs 09/14/24 metronidazole 500 mg tablet 500 mg PO Q8H 7 days #21 t abs 11/07/24 amoxicillin 500 mg-potassium 1 tab PO TID #30 tabs 01/26 clavulanate 125 mg tablet (Augmentin) prednisone 20 mg tablet 20 mg PO DAILY #5 tabs 01/04 Allergies Allergy/AdvReac Type Severity Reaction Status Date / Time ciprofloxacin (From Cipro) Allergy ADR-Back Verified 01/05/25 17:44 Pain codeine Allergy Psychotic Verified 01/05/25 17:44 symptoms lorazepam (From Ativan) Allergy Psychotic Verified 01/05/25 17:44 symptoms midazolam (From Versed) Allergy Extreme Verified 01/05/25 17:44 violence promethazine (From Phenergan) Allergy Twitching Verified 01/05/25 17:44 and shaking Review of Systems 2 Const: Denies: fever(s), chills, body aches or change in appetite ENMT: Reports: epistaxis; Denies: throat pain or dental pain Card: Denies: chest pain Resp: Denies: dyspnea GI: Denies: abdominal pain, nausea, vomiting or diarrhea Musc: Denies: neck pain or back pain Skin/Breast: Denies: rash Neuro: Denies: headache(s) PFSH ED 2 PFSH: Medical History Skin rash Polyarthralgia URI with cough and congestion Anemia Osteoarthritis Other asthma Personal history of other venous thrombosis and embolism Rheumatoid arthritis, unspecified this was ruled out by Dr. Andrade in 2019 GERD (gastroesophageal reflux disease) Plantar fascial fibromatosis of left foot Surgical History History of tubal ligation Done laparoscopically at the age of 23 H/O right wrist surgery Right wrist fracture repair S/P foot surgery, left Left foot fracture repair History of lumpectomy of right breast Lump removal X 3 from right breast; benign per patient. Status post laparoscopic-assisted sigmoidectomy Laparoscopic sigmoid colectomy performed on 02/04/2017, Done by Dr. Turcios at [facility] [place] for symptomatic diverticulosis/diverticulitis H/O bladder repair surgery Anterior vaginal repair with porcine graft placement, ureteral pubic urethral sling and cystoscopy performed on 10/02/[address] Barajas for cystocele and stress urinary incontinence. Operative report scanned into computer. History of total hip replacement 2 times. Has had right-sided total hip replacement 2 times. Had a DVT after the first 1. History of hysterectomy Vaginal hysterectomy, Done for prolapse at the age of 45. She was told that she has no cancer or precancer. Ovaries spared. History of dilation and curettage Done for heavy vaginal bleeding in her 40s History of tonsillectomy Done at the age of 27. Family History Mother Heart disease Cancer Breast and thyroid Diabetes Hypertension Father Heart disease Cancer Bone cancer Lung disease Hypertension Son Heart disease One son from a heart attack at the age of 45 Cancer Family/Other Diabetes Maternal Aunt, Maternal Uncle Brother Cancer Grandfather Cancer Grandmother Cancer Denies family history of Rheumatoid arthritis Psoriatic arthritis Heart attack Psoriasis Social History Smoking and tobacco/nicotine status: unknown if used tobacco/nicotine Quit status (tobacco/nicotine): has quit using Year quit tobacco: 12/26/22 Alcohol intake: never Substance/Drug Use: never Female Reproductive History: Para: 1 ( (1 son at the age of 45 in 2017 from a myocardial infarction) X 2) Spontaneous abortions: No Physical Exam 2 Const: COMMON NORMALS: no acute distress, patient oriented x3 and healthy appearing HENMT: COMMON NORMALS: normocephalic and atraumatic HEAD & SCALP: n ormocephalic and atraumatic OTHER: Dried blood in left nare with active bleeding Eye: COMMON NORMALS: conjunctivae normal CONJUNCTIVA: Yes conjunctivae normal Neck/C-Spine: COMMON NORMALS: full ROM and supple Chest: COMMONS NORMALS: normal inspection of the chest Resp: COMMON NORMALS: normal respiratory effort Cardio: RATE: tachycardic Extremity: COMMON NORMALS: normal to inspection and full ROM Neuro: COMMON NORMALS: patient oriented x3, moves all extremities and no focal motor deficits Psych: COMMON NORMALS: mental status grossly normal, Normal thought process present and cooperative THOUGHT PROCESS: Normal thought process present Skin: COMMON NORMALS: no rashes or lesions noted and no wounds GENERAL SKIN EXAM: no rashes or lesions noted Course 2 Vital Signs: Vital signs: Vital Signs Temperature 97.9 F 01/05/25 17:40 Pulse Rate 98 01/05/25 18:34 Respiratory Rate 18 01/05/25 17:40 Blood Pressure 143/90 01/05/25 18:34 Pulse Oximetry 92 01/05/25 18:34 Oxygen Delivery Me thod Room Air 01/05/25 18:34 MDM - Epistaxis Medical Decision Making Patient presents for his nosebleed is since resolved her blood pressure is better as well she stable for discharge follow-up with PCP return if worsening. Medical Records I reviewed the patient's medical records. Lab Data I reviewed the patient's lab results. 01/05/25 18:08 Laboratory Results WBC 5.45 10^3/uL (3.29-11.43) 01/05/25 18:08 RBC 4.54 10^6/uL (3.85-5.65) 01/05/25 18:08 Hgb 14.30 g/dL (11.27-16.99) 01/05/25 18:08 Hct 43.7 % (36-47) 01/05/25 18:08 MCV 96.3 fl (85-98) 01/05/25 18:08 MCH 31.5 pg (27-33) 01/05/25 18:08 MCHC 32.7 g/dL (30-55) 01/05/25 18:08 RDW 13.1 % (12.1-15.1) 01/05/25 18:08 Plt Count 335 10^3/cmm (157-399) 01/05/25 18:08 MPV 8.9 fL (7.4-10.4) 01/05/25 18:08 Neut % (Auto) 85.5 % 01/05/25 18:08 Lymph % (Auto) 11.7 % 01/05/25 18:08 Vernon % (Auto) 1.8 % 01/05/25 18:08 Eos % (Auto) 0.0 % 01/05/25 18:08 Baso % (Auto) 0.6 % 01/05/25 18:08 Neut # (Auto) 4.66 10^3/uL (1.8-7.7) 01/05/25 18:08 Lymph # (Auto) 0.6 10^3/uL (0.8-4.8) L 01/05/25 18:08 Vernon # (Auto) 0.1 10^3/uL (0.2-0.9) L 01/05/25 18:08 Eos # (Auto) 0.0 10^3/uL (0.0-0.8) 01/05/25 18:08 Baso # (Auto) 0.0 10^3/uL (0.0-0.1) 01/05/25 18:08 Nucleated RBC % (auto) 0 % 01/05/25 18:08 Nucleated RBCs # 0.0 /100WBC 01/05/25 18:08 No radiology studies performed this visit Discharge Plan Discharge Patient Disposition: Home Clinical Impression: Epistaxis Condition: Stable Prescriptions: No Action multivitamin Tablet 1 tab PO QAM metronidazole 500 mg tablet 500 mg PO Q8H 7 Days Qty: 21 0RF prednisone 20 mg tablet 20 mg PO DAILY Qty: 5 0RF Rx Instructions: take with food. amoxicillin-pot clavulanate [Augmentin] 500-125 mg tablet 1 tab PO TID Qty: 30 0RF ferrous sulfate 325 mg (65 mg iron) tablet 325 mg PO BID Qty: 60 11RF omeprazole 20 mg capsule,delayed release(DR/EC) See Rx Instructions .ROUTE .COMPLEX Qty: 180 3RF Dose Instruction: TAKE 1 CAPSULE TWICE A DAY Rx Instructions: TAKE 1 CAPSULE TWICE A DAY metoprolol tartrate 25 mg tablet 25 mg PO BID Qty: 60 11RF albuterol sulfate 90 mcg/actuation HFA aerosol inhaler 1 puff INHALATION Q6H PRN (Reason: Shortness Of Breath) Qty: 8.5 11RF dabigatran etexilate [Pradaxa] 75 mg capsule 75 mg PO BID Qty: 180 3RF Rx Instructions: Use name brand only. tramadol 50 mg tablet 50 mg PO QID PRN (Reason: Pain) Qty: 120 3RF Pradaxa 75 mg capsule 75 mg PO BID Discharge Orders: Discharge ED (Routine); Ordered 01/05/25 Ordered By: Carmen Stover Referrals: Wali Holguin MD [Primary Care Provider] - 4-7 days Discharge Diet: Advance as tolerated Discharge Activity: Resume usual activity Patient Instructions: Nosebleed (ED) Print Language: Egyptian Coding Level of Care Code ED Supervisor Mails for Terra Thompson
[2025-01-05 18:17] LABS: Basophils % 0.6 %; Hematocrit 43.7 % (36-47); Lymphocytes # 0.6 10^3/uL (0.8-4.8); Lymphocytes % 11.7 %; Mean Corpuscular HGB Conc 32.7 g/dL (30-55); Mean Corpuscular Hemoglobin 31.5 pg (27-33); Mean Corpuscular Volume 96.3 fl (85-98); Mean Platelet Volume 8.9 fL (7.4-10.4); Monocytes # 0.1 10^3/uL (0.2-0.9); Monocytes % 1.8 %; Neutrophils # 4.66 10^3/uL (1.8-7.7); Neutrophils % 85.5 %; Nucleated Red Blood Cells % 0 %; Platelet Count 335 10^3/cmm (157-399); Red Blood Count 4.54 10^6/uL (3.85-5.65); Red Cell Distribution Width 13.1 % (12.1-15.1); White Blood Count 5.45 10^3/uL (3.29-11.43)
[2025-01-05 18:22] VITALS: BP 170/99; PULSE 103; O2SAT 95
[2025-01-05] MEDS: labetalol 5 mg/mL SDV 20mL 10 MG IVP (18:24)
[2025-01-05 18:34] VITALS: BP 143/90; PULSE 98; O2SAT 92
[2025-01-05 19:23] VITALS: BP 145/98; PULSE 92; O2SAT 94
== END 2025-01-05 19:24 | disposition home or self-care (01) ==
PROVIDERS: Emergency Provider Emergency Medicine; PCP Family Medicine
DX: R04.0 Epistaxis (principal)
CPT/HCPCS: 36415; 85025; 96374; 99284; J3490

== ENCOUNTER 2025-01-09 06:04 | Emergency (ER) | payer MEDICARE, OTHER, SELFPAY ==
[2025-01-09 06:13] VITALS: BP 192/122; PULSE 80; RESP 20; TEMP 36.8; O2SAT 97; BMI 31.8
[2025-01-09 06:27] LABS: Basophils # 0.1 10^3/uL (0.0-0.1); Basophils % 0.7 %; Eosinophils # 0.1 10^3/uL (0.0-0.8); Eosinophils % 0.7 %; Lymphocytes # 2.2 10^3/uL (0.8-4.8); Lymphocytes % 31.9 %; Mean Corpuscular HGB Conc 32.9 g/dL (30-55); Mean Corpuscular Hemoglobin 31.5 pg (27-33); Mean Corpuscular Volume 95.9 fl (85-98); Mean Platelet Volume 8.8 fL (7.4-10.4); Monocytes # 0.8 10^3/uL (0.2-0.9); Monocytes % 11.7 %; Neutrophils # 3.69 10^3/uL (1.8-7.7); Neutrophils % 54.7 %; Nucleated Red Blood Cells % 0 %; Platelet Count 351 10^3/cmm (157-399); Red Blood Count 4.38 10^6/uL (3.85-5.65); Red Cell Distribution Width 13.1 % (12.1-15.1); White Blood Count 6.75 10^3/uL (3.29-11.43)
[2025-01-09] MEDS: labetalol 5 mg/mL SDV 20mL 10 MG IVP (06:36)
[2025-01-09] MEDS: diphenhydrAMINE 50 mg/mL SDV 1mL IVP (06:36)
[2025-01-09] MEDS: hyDRALAzine 20 mg/mL INJ 1 mL 10 MG IVP (06:36)
[2025-01-09] MEDS: tranexamic acid 1,000 MG/100 ML PREMIX 600 MG IV (06:37)
[2025-01-09 06:40] LABS: INR 0.95 (0.8-1.2)
[2025-01-09 06:57] LABS: Alanine Aminotransferase 29 U/L (0-33); Alkaline Phosphatase 96 U/L (35-105); Anion Gap 13.6 (5-19); Aspartate Amino Transferase 21 U/L (0-32); Blood Urea Nitrogen 14 mg/dL (8-23); Calcium 9.3 mg/dL (8.5-10.5); Carbon Dioxide 29 mmol/L (22-29); Chloride 101 mmol/L (98-107); Creatinine Clr Calc Pharmacy 62.4296; Globulin 3.2 g/dL (1.3-4.6); Glucose 99 mg/dL (65-115); Osmolality Calculated 291 mOsm/kg (285-295); Potassium 3.6 mmol/L (3.5-5.1); Sodium 140 mmol/L (136-145); Total Bilirubin 0.2 mg/dL (0.15-1.2); Total Protein 7.2 g/dL (6.6-8.7)
--- NOTE | 2025-01-09 07:25 | W.ED.EPISTAX ---
HPI - Epistaxis General: Chief complaint: Epistaxis Stated complaint: bloody nose Time Seen by Provider: 01/09/25 06:10 History of Present Illness: 74-year-old female presents emergency room with complaint of epistaxis. She was seen earlier this week with elevated blood pressure and epistaxis. She she was treated in the emergency room did not require nasal packing she has recurrent bleeding this morning. 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 She is still currently taking as well. No headache no vision changes no recent trauma Associated symptoms: Deny fever(s) Related Data Home Medications ?Medication ?Instructions ?Recorded ?Confirmed multivitamin 1 tab PO QAM 11/16/19 01/09/25 omeprazole 20 mg capsule,delayed 20 mg PO BID 01/09/25 01/09/25 release Previous Rx's ?Medication ?Instructions ?Recorded ferrous sulfate 325 mg (65 mg 325 mg PO BID #60 tabs 01/22/24 iron) tablet metoprolol tartrate 25 mg tablet 25 mg PO BID #60 tabs 06/11/24 dabigatran etexilate 75 mg capsule 75 mg PO BID #180 caps 07/17/24 (Pradaxa) tramadol 50 mg tablet 50 mg PO QID PRN Pain #120 tabs 09/14/24 amoxicillin 500 mg-potassium 1 tab PO TID #30 tabs 01/04/25 clavulanate 125 mg tablet (Augmentin) prednisone 20 mg tablet 20 mg PO DAILY #5 tabs 01/04/25 amlodipine 2.5 mg tablet 2.5 mg PO DAILY #30 tabs 01/09/25 mupirocin 2 % topical ointment 1 applic topical BID #22 grams 01/09/25 (Centany) Allergies Allergy/AdvReac Type Severity Reaction Status Date / Time ciprofloxacin (From Cipro) Allergy ADR-Back Verified 01/05/25 17:44 Pain codeine Allergy Psychotic Verified 01/05/25 17:44 symptoms lorazepam (From Ativan) Allergy Psychotic Verified 01/05/25 17:44 symptoms midazolam (From Versed) Allergy Extreme Verified 01/05/25 17:44 violence promethazine (From Phenergan) Allergy Twitching Verified 01/05/25 17:44 and shaking Review of Systems Const: Denies: fever(s) or chills ENMT: Reports: epistaxis Card: Denies: chest pain Resp: Denies: dyspnea GI: Denies: abdominal pain : Denies: dysuria, urinary frequency or urinary urgency Musc: Denies: neck pain or back pain Skin/Breast: Denies: rash PFSH ED PFSH: Medical History Skin rash Polyarthralgia URI with cough and congestion Anemia Osteoarthritis Other asthma Personal history of other venous thrombosis and embolism Rheumatoid arthritis, unspecified this was ruled out by Dr. Andrade in 2019 GERD (gastroesophageal reflux disease) Plantar fascial fibromatosis of left foot Surgical History History of tubal ligation Done laparoscopically at the age of 23 H/O right wrist surgery Right wrist fracture repair S/P foot surgery, left Left foot fracture repair History of lumpectomy of right breast Lump removal X 3 from right breast; benign per patient. Status post laparoscopic-assisted sigmoidectomy Laparoscopic sigmoid colectomy performed on 02/04/2017, Done by Dr. Turcios at [facility] [place] for symptomatic diverticulosis/diverticulitis H/O bladder repair surgery Anterior vaginal repair with porcine graft placement, ureteral pubic urethral sling and cystoscopy performed on 10/02/[address] Barajas for cystocele and stress urinary incontinence. Operative report scanned into computer. History of total hip replacement 2 times. Has had right-sided total hip replacement 2 times. Had a DVT after the first 1. History of hysterectomy Vaginal hysterectomy, Done for prolapse at the age of 45. She was told that she has no cancer or precancer. Ovaries spared. History of dilation and curettage Done for heavy vaginal bleeding in her 40s History of tonsillectomy Done at the age of 27. Family History Mother Heart disease Cancer Breast and thyroid Diabetes Hypertension Father Heart disease Cancer Bone cancer Lung disease Hypertension Son Heart disease One son from a heart attack at the age of 45 Cancer Family/Other Diabetes Maternal Aunt, Maternal Uncle Brother Cancer Grandfather Cancer Grandmother Cancer Denies family history of Rheumatoid arthritis Psoriatic arthritis Heart attack Psoriasis Social History Smoking and tobacco/nicotine status: unknown if used tobacco/nicotine Quit status (tobacco/nicotine): has quit using Year quit tobacco: 12/26/22 Alcohol intake: never Substance/Drug Use: never Female Reproductive History: Para: 1 ( (1 son at the age of 45 in 2017 from a myocardial infarction) X 2) Spontaneous abortions: No Physical Exam Const: COMMON NORMALS: no acute distress GENERAL APPEARANCE: cooperative and comfortable ORIENTATION/CONSCIOUSNESS: Yes awake, Yes oriented to person, Yes oriented to place and Yes oriented to time HENMT: COMMON NORMALS: normocephalic, atraumatic and hearing grossly normal bilaterally HEAD & SCALP: normocephalic and atraumatic OTHER: On arrival there is scant bleeding anteriorly particularly from the left nare Resp: COMMON NORMALS: normal respiratory effort, No retractions, No use of accessory muscles and clear to auscultation bilaterally AUSCULTATION: clear to auscultation bilaterally Cardio: COMMON NORMALS: regular rate, regular rhythm and No murmurs present (Cardio) RATE: regular rate RHYTHM: regular rhythm GI: COMMON NORMALS: Soft to palpation and No hepatosplenomegaly present AUSCULTATION: Yes normoactive bowel sounds PALPATION: Yes Soft to palpation, No Tenderness to palpation present (GI), No Guarding due to palpation present (GI) and Yes No hepatosplenomegaly present Extremity: COMMON NORMALS: normal to inspection, capillary refill normal, no clubbing, cyanosis or edema, no calf tenderness and no pedal edema Neuro: SENSORIUM/ORIENTATION: Yes oriented to person, Yes oriented to place and Yes oriented to time Skin: COMMON NORMALS: no rashes or lesions noted GENERAL SKIN EXAM: no rashes or lesions noted Course Vital Signs: Vital signs: Vital Signs Temperature 98.2 F 01/09/25 06:13 Pulse Rate 86 01/09/25 09:02 Respiratory Rate 20 H 01/09/25 06:13 Blood Pressure 154/78 01/09/25 09:02 Pulse Oximetry 98 01/09/25 09:02 Oxygen Delivery Me thod Room Air 01/09/25 06:13 MDM - Epistaxis Medical Decision Making Patient position dependency anterior plexus she was basically just collecting blood it drained from the nose prior to that. She is given Ativan and antihypertensives as well as TXA complete resolution of the bleeding will discharge patient home earlier in the week she was seen Dr. Luis who put her on Augmentin additionally we will put her on topical antibiotic ointment to spread inside the nares twice daily. Control blood pressure and follow-up with primary care. I did add amlodipine 2.5 mg daily to her blood pressure regimen continue her other medications. She should follow-up with her doctor early next week to reevaluate blood pressure. Hemoglobin stable at this time. Medical Records I reviewed the patient's medical records. Lab Data I reviewed the patient's lab results. 01/09/25 06:22 01/09/25 06:22 Laboratory Results WBC 6.75 10^3/uL (3.29-11.43) 01/09/25 06:22 RBC 4.38 10^6/uL (3.85-5.65) 01/09/25 06:22 Hgb 13.80 g/dL (11.27-16.99) 01/09/25 06:22 Hct 42.0 % (36-47) 01/09/25 06:22 MCV 95.9 fl (85-98) 01/09/25 06:22 MCH 31.5 pg (27-33) 01/09/25 06:22 MCHC 32.9 g/dL (30-55) 01/09/25 06:22 RDW 13.1 % (12.1-15.1) 01/09/25 06:22 Plt Count 351 10^3/cmm (157-399) 01/09/25 06:22 MPV 8.8 fL (7.4-10.4) 01/09/25 06:22 Neut % (Auto) 54.7 % 01/09/25 06:22 Lymph % (Auto) 31.9 % 01/09/25 06:22 Snyder % (Auto) 11.7 % 01/09/25 06:22 Eos % (Auto) 0.7 % 01/09/25 06:22 Baso % (Auto) 0.7 % 01/09/25 06:22 Neut # (Auto) 3.69 10^3/uL (1.8-7.7) 01/09/25 06:22 Lymph # (Auto) 2.2 10^3/uL (0.8-4.8) 01/09/25 06:22 Snyder # (Auto) 0.8 10^3/uL (0.2-0.9) 01/09/25 06:22 Eos # (Auto) 0.1 10^3/uL (0.0-0.8) 01/09/25 06:22 Baso # (Auto) 0.1 10^3/uL (0.0-0.1) 01/09/25 06:22 Nucleated RBC % (auto) 0 % 01/09/25 06:22 Nucleated RBCs # 0.0 /100WBC 01/09/25 06:22 PT 13.30 SECONDS (12.1-14.9) 01/09/25 06:22 INR 0.95 (0.8-1.2) 01/09/25 06:22 Sodium 140 mmol/L (136-145) 01/09/25 06:22 Potassium 3.6 mmol/L (3.5-5.1) 01/09/25 06:22 Chloride 101 mmol/L (98-107) 01/09/25 06:22 Carbon Dioxide 29 mmol/L (22-29) 01/09/25 06:22 Anion Gap 13.6 (5-19) 01/09/25 06:22 BUN 14 mg/dL (8-23) 01/09/25 06:22 Creatinine 0.7 mg/dL (0.5-0.9) 01/09/25 06:22 GFR Calculation Not Reportable 01/09/25 06:22 Glucose 99 mg/dL (65-115) 01/09/25 06:22 Calculated Osmolality 291 mOsm/kg (285-295) 01/09/25 06:22 Calcium 9.3 mg/dL (8.5-10.5) 01/09/25 06:22 Total Bilirubin 0.2 mg/dL (0.15-1.2) 01/09/25 06:22 AST 21 U/L (0-32) 01/09/25 06:22 ALT 29 U/L (0-33) 01/09/25 06:22 Alkaline Phosphatase 96 U/L (35-105) 01/09/25 06:22 Total Protein 7.2 g/dL (6.6-8.7) 01/09/25 06:22 Albumin 4.0 g/dL (3.5-5.2) 01/09/25 06:22 Globulin 3.2 g/dL (1.3-4.6) 01/09/25 06:22 All radiology interpretation(s) finalized by discharge Discharge Plan Discharge Patient Disposition: Home Clinical Impression: Epistaxis, HTN (hypertension) Condition: Stable Prescriptions: New mupirocin [Centany] 2 % ointment 1 applic topical BID Qty: 22 0RF amlodipine 2.5 mg tablet 2.5 mg PO DAILY Qty: 30 0RF No Action multivitamin Tablet 1 tab PO QAM prednisone 20 mg tablet 20 mg PO DAILY Qty: 5 0RF Rx Instructions: take with food. amoxicillin-pot clavulanate [Augmentin] 500-125 mg tablet 1 tab PO TID Qty: 30 0RF ferrous sulfate 325 mg (65 mg iron) tablet 325 mg PO BID Qty: 60 11RF metoprolol tartrate 25 mg tablet 25 mg PO BID Qty: 60 11RF dabigatran etexilate [Pradaxa] 75 mg capsule 75 mg PO BID Qty: 180 3RF Rx Instructions: Use name brand only. tramadol 50 mg tablet 50 mg PO QID PRN (Reason: Pain) Qty: 120 3RF omeprazole 20 mg capsule,delayed release(DR/EC) 20 mg PO BID Discharge Orders: Discharge ED (Routine); Ordered 01/09/25 Ordered By: Michele Berger Referrals: Wali Holguin MD [Primary Care Provider] - Discharge Diet: Usual diet Discharge Activity: Resume usual activity Patient Instructions: Opioid Safety, Pain Management Activity Restrictions/Additional Instructions: Thank you for choosing [facility] for your healthcare needs today. It is very important that you follow up as instructed or that you return to the Emergency Department should you have concerns or if your condition changes or worsens in any way. You were seen in the emergency room for elevated blood pressure and recurrent epistaxis. Bleeding stopped with conservative measures. Recommend you continue to continue your Pradaxa due to your history of thrombosis. Also continue your metoprolol. Complete the prescription of antibiotics at Dr. Holguin gave you 5 days ago. In addition to this apply topical antibiotic ointment with a cotton swab inside the nose gently twice a day. Finally to help with your blood pressure will add amlodipine 2.5 mg once daily. You should follow-up with Dr. Holguin within the next week to reevaluate your blood pressure. If felt appropriate he can refer to ENT if you are still having issues with nosebleeds. Print Language: Kiswahili Coding Level of Care Code ED Ethylbenzene Converter Operator for Terra Thompson
[2025-01-09 08:12] VITALS: BP 134/72; PULSE 96; O2SAT 97
[2025-01-09 09:02] VITALS: BP 154/78; PULSE 86; O2SAT 98
== END 2025-01-09 09:03 | disposition home or self-care (01) ==
PROVIDERS: Emergency Provider Family Medicine; PCP Family Medicine
DX: R04.0 Epistaxis (principal); I10 Essential (primary) hypertension
CPT/HCPCS: 80053; 85025; 85610; 96374; 96375; 99284; J0360; J1200; J3490

== ENCOUNTER → 2025-02-03 11:19 | Outpatient (BNVA) | payer MEDICARE, OTHER, SELFPAY | PROVIDERS: PCP Family Medicine; Visit Provider Family Medicine | DX: Z86.718 Personal history of other venous thrombosis and embolism (principal); D64.9 Anemia, unspecified; R10.9 Unspecified abdominal pain | CPT/HCPCS: 80053; 83690; 83880; 85025; 86140 ==

== ENCOUNTER → 2025-08-23 14:17 | Outpatient (BNVA) | payer MEDICARE, OTHER, SELFPAY | PROVIDERS: PCP Family Medicine; Visit Provider Family Medicine | DX: R30.0 Dysuria (principal); R10.9 Unspecified abdominal pain; N39.0 Urinary tract infection, site not specified | CPT/HCPCS: 80053; 81000; 83690; 85025; 86140; 87086 ==

== ENCOUNTER 2025-10-18 14:00 | Outpatient (CLI) | payer MEDICARE, SELFPAY ==
--- NOTE | 2025-10-18 13:45 | CT_ITS ---
WS: [id number] CT ABDOMEN AND PELVIS WITH CONTRAST HISTORY: diverticulitis/ abd pain TECHNIQUE: Imaging performed of the abdomen and pelvis with IV contrast. Single phase imaging of the abdomen. Coronal and sagittal reformats are submitted. All CT scans at [facility] use at least one of these dose optimization techniques: automated exposure control; mA and/or kV adjustment per patient size (includes targeted exams where dose is matched to clinical indication); or iterative reconstruction. IV CONTRAST: Omnipaque 350; 100 mL IV. Oral contrast: No DLP: 893.34 mGy.cm COMPARISON: None 11/11/2024 Lower thorax: Lung bases are clear. Heart is normal size. Large hiatal hernia. Nearly the entire stomach is above the diaphragm. Liver/biliary system: Normal size liver. Long-term stability 8 mm cyst in the superior liver. No intrahepatic duct dilatation. Gallbladder: Normal. No gallstones or wall thickening. No pericholecystic fluid. Pancreas: Normal size pancreas and pancreatic duct. No adjacent inflammation. Spleen: Normal size spleen. No mass or infarct. Adrenal glands: Normal. Right kidney: Normal size kidney. No obstruction. Long-term stability 1.6 cm cyst from the lower pole. No solid mass. Left kidney: Normal. Aorta: Mild atherosclerosis aorta. No aneurysm. Mesenteric arteries are patent. Lymphadenopathy: None. Free fluid: None. GI tract: No GI tract obstruction. Appendix is difficult to identify. No obstruction of the colon. Several sigmoid diverticula. There is evidence for sigmoid resection. Surgical anastomotic sutures are intact. There is no obstruction or recurrent mass. No acute diverticulitis. Abdominal wall: Supraumbilical abdominal wall hernia contains fat only. Orifice of the hernia is 3.0 cm. Pelvis: Prior hysterectomy. Beam hardening artifact from the RIGHT hip arthroplasty obscuring detail within the pelvis. Bones: Advanced degenerative disc disease in the lumbar spine. Prior RIGHT hip arthroplasty. CT/CT abdomen pelvis w con* [id number] IMPRESSION: 1. Large hiatal hernia. Nearly the entire stomach is intrathoracic. 2. Normal gallbladder. 3. Long-term stability hepatic cyst. 4. Long-term stability LEFT renal cyst. 5. Surgical sigmoid anastomosis is intact. No complications. 6. Sigmoid diverticulosis without acute diverticulitis. 7. No adenopathy or ascites. 8. Supraumbilical abdominal wall hernia contains fat only.
[2025-10-18] MEDS: iohexol 350 mg/mL 500 mL Btl (per mL) IV (14:29)
== END 2025-10-18 14:01 | disposition home or self-care (01) ==
LOC: RAD 14:01
PROVIDERS: PCP Family Medicine; Visit Provider Family Medicine
DX: K57.30 Diverticulosis of large intestine without perforation or abscess without bleeding (principal); K44.9 Diaphragmatic hernia without obstruction or gangrene; K76.89 Other specified diseases of liver; N28.1 Cyst of kidney, acquired; K42.9 Umbilical hernia without obstruction or gangrene; Z90.710 Acquired absence of both cervix and uterus; M51.369 Other intervertebral disc degeneration, lumbar region without mention of lumbar back pain or lower extremity pain
CPT/HCPCS: 74177; 80053; 85025; 86140